=== PATIENT | female | born 1940 | race Caucasian/White ===

== ENCOUNTER 2018-02-01 07:51 | Day surgery (SDC) | payer MEDICARE ==
[~2018-02-01 07:51] MED LIST: BRIMONIDINE 0.2% OPHTH DROPS 5 ML ONE; BSS/LIDOCAINE/EPINEPHRINE 1 ML SYRINGE ONE; CYCLOPENTOLATE 1% OPHTH DROPS 2 ML ONE; EPINEPHrine 1 MG/ML AMP ONE; KETOROLAC 0.45% OPHTH DROPS ONE; PHENYLEPHRINE 2.5% OPHTH 2 ML DROPS ONE; PROPARACAINE 0.5% OPHTH DROPS 15 ML ONE; TIMOLOL 0.5% OPHTH DROPS ONE; TRIAMCIN/MOXIFLOX OPHTHALMIC 0.6 ML VIAL IO ONE; VANCOMYCIN OPHTHALMI 8MG/0.8ML 8 MG/0.8 ML SYRINGE IO ONE
[2018-02-01] MEDS ORDERED: LACTATED RINGERS 500 ML IV ONE (08:10)
[2018-02-01] MEDS ORDERED: PROPARACAINE 0.5% OPHTH DROPS 15 ML RIGHTEYE ONE ×2 (08:25→09:35)
[2018-02-01] MEDS ORDERED: CYCLOPENTOLATE 1% OPHTH DROPS 2 ML RIGHTEYE ONE (08:25)
[2018-02-01] MEDS ORDERED: KETOROLAC 0.45% OPHTH DROPS RIGHTEYE ONE (08:25)
[2018-02-01] MEDS ORDERED: PHENYLEPHRINE 2.5% OPHTH 2 ML DROPS RIGHTEYE ONE (08:25)
--- NOTE | 2018-02-01 09:10 | ANESTHESIA ---
Pre-Anesthesia VS, & Labs - Diagnosis Right eye senile combined cataract - Procedure Laser assisted cataract extraction with IOL right eye Vital Signs: Temp Pulse Resp BP Pulse Ox 36.7 C 73 16 145/65 H 100 02/01/18 08:17 02/01/18 08:17 02/01/18 08:17 02/01/18 08:17 02/01/18 08:17 Height 5 ft Weight (kg) 67 kg - NPO >8 hours - Is Patient ?: No Home Medications and Allergies Home Medications: Ambulatory Orders Estrogen,Con/M-Progest Acet [Prempro 0.3 mg-1.5 mg Tablet] 1 each PO DAILY 01/31/18 Lisinopril 20 mg PO DAILY 01/31/18 Multivitamin [Multivitamins] 1 each PO DAILY 01/31/18 hydroCHLOROthiazide [Hydrochlorothiazide] 25 mg PO DAILY 01/31/18 Estrogen,Con/M-Progest Acet [Prempro 0.3 mg-1.5 mg Tablet] 1 each PO DAILY 01/31/18 Lisinopril 20 mg PO DAILY 01/31/18 Multivitamin [Multivitamins] 1 each PO DAILY 01/31/18 hydroCHLOROthiazide [Hydrochlorothiazide] 25 mg PO DAILY 01/31/18 Allergies/Adverse Reactions: Allergies Allergy/AdvReac Type Severity Reaction Status Date / Time amoxicillin Allergy Rash Verified 02/01/18 08:21 azithromycin Allergy Unknown Verified 02/01/18 08:21 Anes History & Medical History - Anesthetic History Anesthesia Complications: reports: No previous complications - Medical History Cardiovascular: reports: Hypertension Pulmonary: reports: None Gastrointestinal: reports: Hiatal hernia Urinary: reports: None Neuro: reports: None Musculoskeletal: reports: None Endocrine/Autoimmune: reports: None Blood Disorders: reports: None Smoking Status: Never smoker Psychosocial: reports: Alcohol (Glass of wine every night) - Surgical History General: Other (colectomy and hernia repair) Exam General: Alert, Oriented x3, Cooperative, No acute distress Dental: WNL Mouth Openin Fingerbreadth Neck Mobility: Normal Mallampati classification: II Thyromental Distance: less than 4 cm Respiratory: Lungs clear, Normal breath sounds, No respiratory distress, No accessory muscle use Cardiovascular: Regular rate, Normal S1, Normal S2, No murmurs Mental/Cognitive Status: Alert/Oriented X3, Normal for patient Plan Anesthesia Type: MAC Consent for Procedure(s) Verified and Reviewed: Yes Code Status: Attempt Resuscitation ASA classification: 2-Mild systemic disease Is this case an emergency?: No
[2018-02-01] MEDS ORDERED: MIDAZOLAM 2 MG/2 ML VIAL IVP ONE (09:25)
[2018-02-01] MEDS ORDERED: EPINEPHrine 1 MG/ML AMP IVP ONE (09:34)
[2018-02-01] MEDS ORDERED: CHONDR SULF/HYALURONATE SYRINGE IO ONE (09:34)
[2018-02-01] MEDS ORDERED: BSS/LIDOCAINE/EPINEPHRINE 1 ML SYRINGE IO ONE ×2 (09:34)
[2018-02-01] MEDS ORDERED: BRIMONIDINE 0.2% OPHTH DROPS 5 ML OPTH ONE (09:34)
[2018-02-01] MEDS ORDERED: TIMOLOL 0.5% OPHTH DROPS OPTH ONE (09:34)
[2018-02-01 10:22] VITALS: BP 118/70
[2018-02-01] MEDS ORDERED: EPINEPHrine 1 MG/ML AMP ONE (12:00)
[2018-02-01] MEDS ORDERED: BRIMONIDINE 0.2% OPHTH DROPS 5 ML ONE (12:00)
[2018-02-01] MEDS ORDERED: BSS/LIDOCAINE/EPINEPHRINE 1 ML SYRINGE ONE (12:00)
[2018-02-01] MEDS ORDERED: VANCOMYCIN OPHTHALMI 8MG/0.8ML 8 MG/0.8 ML SYRINGE IO ONE (12:00)
[2018-02-01] MEDS ORDERED: TRIAMCIN/MOXIFLOX OPHTHALMIC 0.6 ML VIAL IO ONE (12:00)
[2018-02-01] MEDS ORDERED: TIMOLOL 0.5% OPHTH DROPS ONE (12:00)
--- NOTE | 2018-02-01 13:00 | OPERATIVE REPORT ---
DATE OF SERVICE: 02/01/2018 Physician: Zach Gibson MD PREOPERATIVE DIAGNOSIS: Visually significant cataract, right eye. This was her first cataract surgery. POSTOPERATIVE DIAGNOSIS: Visually significant cataract, right eye. This was her first cataract surgery. NAME OF PROCEDURE: Phacoemulsification with posterior chamber intraocular lens implant, right eye. SURGEON: Zach Gibson MD ANESTHESIA: Monitored anesthesia care. COMPLICATIONS: None. OPERATIVE INDICATIONS: This is a 77-year-old woman with progressive vision loss in the right eye due to 1-2+ nuclear sclerotic and trace posterior subcapsular cataract centrally. Indications for surgery were overall decrease in vision, difficulty reading; difficulty seeing street signs, difficulty driving in low light or at night and difficulty driving at night because of headlights from other vehicles and/or street lights. She was consented at length concerning risks and benefits of cataract surgery, after which she expressed a desire to proceed with surgery. OPERATIVE PROCEDURE: The patient was taken to OR #3 and placed under monitored anesthesia care. A surgical timeout was conducted confirming correct patient, correct procedure, and correct surgical site. She was placed under the LenSx laser and her eye docked to laser interface. The laser performed the capsulotomy, lens softening, phaco wounds, and ocular keratotomy incisions. She was then moved to the operating microscope, given topical anesthesia, and prepped and draped in usual sterile fashion. The eye was entered at the 12 and 9 o'clock positions. Intracameral Shugarcaine was injected into the anterior chamber, followed by Viscoat. Capsulorrhexis flap created by the LenSx laser was removed from the anterior chamber. The nucleus was hydrodissected and phacoemulsified. The cortex was evacuated using automated infusion and aspiration. Provisc was injected in the capsular bag and a 23.0 diopter intraocular lens was inserted into the bag. Approximately 0.8 mL of a mixture of triamcinolone, moxifloxacin and vancomycin was injected subconjunctivally in the superior quadrant for infection and inflammation prophylaxis. I and A was used to evacuate the viscoelastic materials. The eye was inflated to physiologic pressure using balanced salt solution and found to be not watertight so one 10-0 nylon suture was placed across the wound and it became watertight. The patient was taken from the operating room in good condition and given postoperative instructions. TD: 02/01/2018 10:08 MTDEli
== END 2018-02-01 07:52 | disposition home or self-care (01) ==
LOC: SDS 07:51
PROVIDERS: ATTEND Ophthalmology
PROC: 08RJ3JZ Replacement of Right Lens with Synthetic Substitute, Percutaneous Approach (ICD-10-PCS; principal; 2018-02-01 09:00)
DX: H25.811 Combined forms of age-related cataract, right eye (principal); H35.3130 Nonexudative age-related macular degeneration, bilateral, stage unspecified; I10 Essential (primary) hypertension; Z79.82 Long term (current) use of aspirin; Z79.899 Other long term (current) drug therapy
CPT/HCPCS: 66984; A9270; V2632

== ENCOUNTER 2018-12-10 20:47 | Outpatient (CLI) | payer MEDICARE | END 2018-12-10 20:48 | disposition critical access hospital (66) | LOC: EMS 20:47 | PROVIDERS: ATTEND Surgery | DX: R10.30 Lower abdominal pain, unspecified (principal); R11.0 Nausea | CPT/HCPCS: A0425; A0427 ==

== ENCOUNTER 2018-12-10 21:04 | Inpatient (IN) | payer MEDICARE ==
[2018-12-10] MEDS ORDERED: HYDROmorphone 1 MG/ML CARPUJECT IVP STA (21:22)
[2018-12-10] MEDS ORDERED: SODIUM CHLORIDE 0.9% 1,000 ML IV ONE ×2 (21:22→22:11)
--- NOTE | 2018-12-10 21:24 | ED Physician Documentation ---
PD HPI ABD PAIN - Stated complaint Stated Complaint: ABD PAIN/ NAUSEA - Chief complaint Chief Complaint: Abd Pain - History obtained from History obtained from: Patient, EMS - History of Present Illness Timing - onset: How many hours ago (6), Today Timing - duration: Hours (6) Timing - details: Gradual onset Pain level max: 8 Pain level now: 8 Quality: Cramping, Aching, Pain Location: All over / everywhere Radiation: No: Chest, , Lower back, Left flank, Left shoulder, Right flank, Right shoulder, Upper back Improved by: Other (nothing) Worsened by: Palpation Associated symptoms: Nausea, Vomiting ("dry heaves"). No: Fever, Hematemesis, Diarrhea, Constipation, Melena, Hematochezia, Dysuria Similar symptoms before: Has not had sx before Recently seen: Not recently seen - Additional information Additional information: has a large L sided hernia Review of Systems Ten Systems: 10 systems reviewed and negative Constitutional: denies: Fever, Chills Nose: denies: Rhinorrhea / runny nose, Congestion Cardiac: denies: Chest pain / pressure Respiratory: denies: Cough GI: reports: Nausea. denies: Diarrhea, Hematemesis, Bloody / black stool : denies: Dysuria, Frequency, Hesitancy Skin: denies: Rash Musculoskeletal: denies: Neck pain Neurologic: denies: Headache PD PAST MEDICAL HISTORY - Past Medical History Cardiovascular: Hypertension Respiratory: None Neuro: None Endocrine/Autoimmune: None GI: Hiatal hernia : None Musculoskeletal: None - Past Surgical History General: Other (colectomy and hernia repair) - Present Medications Home Medications: Ambulatory Orders Medication Instructions Recorded Confirmed Estrogen,Con/M-Progest Acet 1 each PO DAILY 01/31/18 02/01/18 [Prempro 0.3 mg-1.5 mg Tablet] Lisinopril 20 mg PO DAILY 01/31/18 02/01/18 Multivitamin [Multivitamins] 1 each PO DAILY 01/31/18 02/01/18 hydroCHLOROthiazide 25 mg PO DAILY 01/31/18 02/01/18 [Hydrochlorothiazide] - Allergies Allergies/Adverse Reactions: Allergies Allergy/AdvReac Type Severity Reaction Status Date / Time amoxicillin Allergy Rash Verified 12/10/18 21:09 azithromycin Allergy Unknown Verified 12/10/18 21:09 - Social History Smoking Status: Never smoker PD ED PE NORMAL - Vitals Vital signs reviewed: Yes - General General: Alert and oriented X 3, No acute distress, Well developed/nourished - HEENT HEENT: PERRL, Moist mucous membranes - Neck Neck: Supple, no meningeal sign - Cardiac Cardiac: RRR - Respiratory Respiratory: No respiratory distress, Clear bilaterally - Abdomen Abdomen: Soft, Other (Tender to palpation just left of midline. There is a firm mass at the site. Large left hernia) - Derm Derm: Warm and dry - Extremities Extremities: No deformity - Neuro Neuro: Alert and oriented X 3 - Psych Psych: Normal mood, Normal affect Results - Vitals Vitals: Vital Signs - 24 hr 12/10/18 12/10/18 21:09 21:19 Temperature 36.8 C Heart Rate 74 74 Respiratory 16 15 Rate Blood Pressure 158/56 H 158/56 H O2 Saturation 100 100 Oxygen O2 Source Room air - Labs Labs: Laboratory Tests 12/10/18 12/10/18 12/10/18 21:26 21:26 21:31 WBC 13.5 H RBC 4.18 L Hgb 13.2 Hct 39.3 MCV 94.0 MCH 31.6 H MCHC 33.6 RDW 13.5 Plt Count 227 MPV 10.7 Neut # (Auto) 10.4 H Lymph # (Auto) 2.0 Collin # (Auto) 0.7 Eos # (Auto) 0.2 Baso # (Auto) 0.1 Absolute Nucleated RBC 0.00 Nucleated RBC % 0.0 Sodium 140 Potassium 3.2 L Chloride 100 L Carbon Dioxide 24 Anion Gap 16.0 H BUN 26 H Creatinine 1.2 H Estimated GFR (MDRD) 44 L Glucose 111 H Lactic Acid 2.8 H Calcium 9.2 Total Bilirubin 0.9 AST 20 ALT 11 Alkaline Phosphatase 49 Total Protein 6.6 L Albumin 3.7 Globulin 2.9 Albumin/Globulin Ratio 1.3 Lipase 33 - Rads (name of study) CT abd/pelvis Radiology: Prelim report reviewed, EMP read contemporaneously, See rad report PD MEDICAL DECISION MAKING - ED course Complexity details: reviewed results, re-evaluated patient, considered differential, d/w patient, d/w family, d/w wellness consultant ED course: 78-year-old female presents to the emergency department with abdominal pain today. She has an exophytic multiloculated cystic and solid lesion in the lower pole left kidney, this will be followed up. Will need follow-up likely as an outpatient. Patient has a ventral abdominal hernia repair with mesh but has a large hernia protruding in the left lower quadrant. There is a long segment of bowel in the hernia sac with wall thickening and hyperenhancement consistent with nonspecific enteritis. She has not elevated lactate as well as leukocytosis. Will place on antibiotics and IV fluids. Discussed the case with Dr. Telles, general surgery on-call for possible incarcerated hernia based on a physical examination. CT does not appear to show an incarcerated hernia. Therefore was decided to place her in the hospital on antibiotics and IV fluids for serial exams and follow-up. Discussed the case with Dr. Jara, hospitalist who accepts. This document was made in part using voice recognition software. While efforts are made to proofread this document, sound alike and grammatical errors may occur. Departure - Departure Disposition: ED Place in Observation Clinical Impression: Enteritis, Lactic acid acidosis, Renal mass Condition: Stable Discharge Date/Time: 12/11/18 00:51
[2018-12-10 21:37] LABS: BASOPHILS # (AUTO) 0.1 10^3/uL (0.0-0.1); BASOPHILS % (AUTO) 0.4 %; EOSINOPHILS # (AUTO) 0.2 10^3/uL (0.0-0.7); EOSINOPHILS % (AUTO) 1.4 %; HGB - HEMOGLOBIN 13.2 g/dL (12.0-16.0); MEAN CORPUSCULAR HEMOGLOBIN 31.6 pg (27.0-31.0); MEAN CORPUSCULAR HGB CONC 33.6 g/dL (32.0-36.0); MEAN PLATELET VOLUME 10.7 fL (7.9-10.8); MONOCYTES # (AUTO) 0.7 10^3/uL (0.0-1.0); MONOCYTES % (AUTO) 5.3 %; NEUTROPHILS # (AUTO) 10.4 10^3/uL (1.5-6.6); NEUTROPHILS % (AUTO) 77.2 %; PLT - PLATELET COUNT 227 10^3/uL (130-450); RED BLOOD COUNT 4.18 10^6/uL (4.20-5.40); RED CELL DISTRIBUTION WIDTH 13.5 % (12.0-15.0); WHITE BLOOD COUNT 13.5 x10^3/uL (4.8-10.8)
[2018-12-10] MEDS ORDERED: IOVERSOL 320 100 ML VIAL IVP ONE ×2 (21:41→22:13)
[2018-12-10 21:51] LABS: ALBUMIN 3.7 g/dL (3.2-5.5); ALBUMIN/GLOBULIN RATIO 1.3 (1.0-2.2); BILIRUBIN,TOTAL 0.9 mg/dL (0.2-1.0); CALCIUM 9.2 mg/dL (8.5-10.3); CREATININE 1.2 mg/dL (0.4-1.0); TOTAL PROTEIN 6.6 g/dL (6.7-8.2)
[2018-12-10] MEDS ORDERED: CEFEPIME 2 GM in SODIUM CHLORIDE 0.9% MINIBAG 100 ML IV STA (22:21)
--- NOTE | 2018-12-10 23:00 | CT Report ---
Reason: abd pain Procedure Date: 12/10/2018 Accession Number: [id number] / [id number] Procedure: CT - Abdomen/Pelvis W CPT Code: FULL RESULT: EXAM: CT ABDOMEN AND PELVIS EXAM DATE: 12/10/2018 10:04 PM. CLINICAL HISTORY: Lower abdominal pain started suddenly 6 hours ago. History of colon surgery in 2008. COMPARISONS: ABDOMEN/PELVIS W/ 02/21/2015 12:11 PM. TECHNIQUE: Routine helical CT imaging was performed through the abdomen and pelvis. IV contrast: 100 cc Optiray 320. Enteric contrast: No. Reconstructions: Coronal and sagittal. In accordance with CT protocol optimization, one or more of the following dose reduction techniques were utilized for this exam: automated exposure control, adjustment of mA and/or KV based on patient size, or use of iterative reconstructive technique. FINDINGS: Imaged chest: Heart is normal in size with mitral annular calcifications. Mild atherosclerosis of the imaged thoracic aorta. Liver: Unremarkable. Gallbladder: See. Biliary: Unremarkable. Pancreas: Unremarkable. Spleen: Unremarkable. Adrenal glands: Unremarkable. Kidneys: Exophytic multiloculated cystic and solid lesion emanating from the lower pole of the left kidney measuring 3.6 x 2.8 x 2.8 cm. The right kidney demonstrates a few scattered tiny subcentimeter low-density foci, technically too small to accurately characterize and indeterminant. Urinary bladder: Unremarkable. Reproductive organs: Unremarkable. Bowel: Again status post attempted ventral abdominal hernia repair with mesh with persistent large ventral abdominal hernia extending into the lower left pelvic subcutaneous tissues. The hernia sac is incompletely imaged on this study but measures approximately 25 x 9 cm with fascial defect measuring 8 cm. There is a long segment of small bowel within the hernia sac that demonstrates wall thickening and hyperenhancement consistent with nonspecific enteritis. The remaining bowel from the hernia sac is unremarkable. There is only minimal fluid surrounding the inflamed small bowel not dilated bowel to suggest obstruction Status post sigmoidectomy with colorectal anastomosis. Uncomplicated descending colonic diverticulosis. Stomach: Nonspecific gastric distention. Appendix: The appendix is not reliably identified, however, there are no secondary signs of acute appendicitis. Miscellaneous: No free fluid. No extraluminal gas. Aorta: Moderate aortic atherosclerosis. Normal in caliber. Lymph nodes: No pathologically enlarged lymph nodes identified. Bones: Grade 1 anterolisthesis L4 on L5 and L5 on S1. No suspicious osseous lesions. IMPRESSION: 1. Exophytic multiloculated cystic and solid lesion emanating from the lower pole of the left kidney measuring 3.6 x 2.8 x 2.8 cm. This should be considered renal cell carcinoma until proven otherwise. Recommend renal mass protocol MRI abdomen for further evaluation. 2. Again status post attempted ventral abdominal hernia repair with mesh with persistent large ventral abdominal hernia extending into the lower left pelvic subcutaneous tissues. The hernia sac is incompletely imaged on this study but measures approximately 25 x 9 cm with fascial defect measuring 8 cm. There is a long segment of small bowel within the hernia sac that demonstrates wall thickening and hyperenhancement consistent with nonspecific enteritis, which may be infectious, inflammatory or ischemic. No evidence of bowel obstruction. 3. Status post sigmoidectomy with colorectal anastomosis. 4. Uncomplicated descending colonic diverticulosis. RADIA
[2018-12-10] MEDS ORDERED: ACETAMINOPHEN 325 MG TABLET PO PRN (23:19)
[2018-12-10] MEDS ORDERED: ONDANSETRON 4 MG/2 ML VIAL IVP PRN (23:19)
[2018-12-10] MEDS ORDERED: POTASSIUM CHLORIDE INJ 40 MEQ in SODIUM CHLORIDE 0.9% 480 ML IV ONE (23:24)
[2018-12-10] MEDS ORDERED: metroNIDAZOLE 500 MG/100 ML 500 MG/100 ML BAG IV SCH (23:45)
--- NOTE | 2018-12-10 23:48 | CONSULTATION NOTE ---
Referring Provider Name of Referring Provider:: Dr. Fazal Herring Consult Date: 12/10/18 Chief Complaint - Chief Complaint Chief Complaint: Abdominal pain and exceedingly large recurrent incisional hernia History of Present Illness - Admitted From Admitted From:: [facility] Emergency Department Room 6 - History Obtained From Records Reviewed: Yes History obtained from: Patient and chart Exam Limitations: None - History of Present Illness HPI Comment/Other: Dr. Fazal Herring called me on consultation to evaluate and possibly treat this very pleasant 78-year-old female for abdominal pain in the face of a very large abdominal recurrent incisional hernia. The patient is known to me as I have seen in the office for the incisional hernia in the past. The patient had her hernia repaired in the past robotically but it soon recurred. We had adopted a wait and see policy regarding this hernia and as it was very large and it was unclear whether or not she could tolerate having this repaired. Today she had a rather abrupt onset of abdominal pain in the midline and it was described as sharp. She has not had any significant nausea or vomiting. Bowel habits have been normal. History - Past Medical History Cardiovascular: reports: Hypertension Respiratory: reports: None Neuro: reports: None Endocrine/Autoimmune: reports: None GI: reports: Hiatal hernia : reports: None Musculoskeletal: reports: None MRSA Hx?: No - Past Surgical History General: reports: Other (colectomy and hernia repair) Meds/Allgy - Home Medications Home Medications: Ambulatory Orders Medication Instructions Recorded Confirmed Estrogen,Con/M-Progest Acet 1 each PO DAILY 01/31/18 02/01/18 [Prempro 0.3 mg-1.5 mg Tablet] Lisinopril 20 mg PO DAILY 01/31/18 02/01/18 Multivitamin [Multivitamins] 1 each PO DAILY 01/31/18 02/01/18 hydroCHLOROthiazide 25 mg PO DAILY 01/31/18 02/01/18 [Hydrochlorothiazide] - Allergies Allergies/Adverse Reactions: Allergies Allergy/AdvReac Type Severity Reaction Status Date / Time amoxicillin Allergy Rash Verified 12/10/18 21:09 azithromycin Allergy Unknown Verified 12/10/18 21:09 Exam - Vital Signs Reviewed Vital Signs: Yes Vital Signs: Vital Signs x48h Temp Pulse Resp BP Pulse Ox 12/10/18 21:19 74 15 158/56 H 100 12/10/18 21:09 36.8 C 74 16 158/56 H 100 - Physical Exam General Appearance: positive: No acute distress Eyes Bilateral: positive: No lid inflammation, Conjunctivae nml, No scleral icterus ENT: positive: Dry mucous membranes Neck: positive: Trachea midline Respiratory: positive: Chest non-tender, No respiratory distress, Breath sounds nml Cardiovascular: positive: Regular rate & rhythm Abdomen: positive: Nml bowel sounds, Tenderness (Minimal midline at the incisional hernia, I was able to reduce the hernia quite nicely but its large size precludes ensuring that the hernia was completely reduced) Skin: positive: Color nml Extremities: positive: Non-tender, Nml appearance Neurologic/Psychiatric: positive: Oriented x3, Motor nml, Sensation nml, Mood/affect nml Conclusion/Plan - Diagnosis Diagnosis: The radiologic read as enteritis and there is no evidence of bowel obstruction. - Plan Plan: The patient will be admitted, treated with IV fluids as well as antibiotics and followed with serial examinations as well as IV antibiotics. Her white count is elevated and her lactate is mildly elevated as well. We currently do not have the biologic mesh that is required to close this hernia defect if in fact the bowel is compromised. If she worsens over the next 24 to 48 hours and surgery is indicated we would either have to get the biologic mesh here for transfer her to a hospital that has it. In studies the risk of placement of mesh in an infected situation results and removal of the mesh and 50 to 90% of all cases. An additional finding on her CT scan of her abdomen is that of a left kidney lesion which is concerning for malignancy. This does need to be worked up. This will not be worked up acutely as her hernia and bowel issue takes prec edence. 45 minutes of [id number] time spent with the patient, the majority of which was spent in discussion, coordination of care, and completion of the requisite paperwork Dragon disclaimer: This document was created in part using voice recognition technology. Because of the inherent limitations of the system ([employer] user manual states that the licensee understands that speech recognition is a statistical process and that recognition errors are inherent in the process), occasional same sounding word substitutions and grammatical errors do occur and persist despite proofreading. Please read this document for context. - Lab Results Fish Bones: 12/10/18 21:26 12/10/18 21:26 - Diagnostic Imaging Results Diagnostic Imaging Results: positive: Final report reviewed, Read independently
--- NOTE | 2018-12-10 23:48 | HISTORY & PHYSICAL EXAMINATION ---
Chief Complaint - Chief Complaint Chief Complaint: Abdominal pain History of Present Illness - Admitted From Admitted From:: Home - History Obtained From Records Reviewed: Yes History obtained from: Patient - History of Present Illness HPI Comment/Other: This is a 78 year old female with a past medical history significant for hypertension, ventral hernia, and diverticulitis s/p colectomy who presents from home today after she developed abdominal cramping and pain. She reports feeling well until 3pm when the cramping developed. It then went away on it's own. She had dinner and felt well but then the pain returned and it was quite severe. She rated at 10/10 and located over her hernia. It was non-radiating and she reports no alleviating factors. The pain was relieved with IV dilaudid. She reports that she had an episode of dry heaving but that she did not vomiting anything up. She reports a prior history of this ventral hernia and that it was repaired in the past robotically but unfortunately it was not successful. She denies diarrhea at this time and reports passing gas. Denies fevers, chills, chest pain, and dyspnea. She does report weight loss over the last two years but she can't quantify how much and attributes it to poor oral intake. She is a nonsmoker. In the ER, she was afebrile, hypertensive, and not tachycardic. Labs were significant for leukocytosis with a left shift, elevated BUN/creatinine, and elevated lactic. She underwent a CT of the abdomen/Pelvis which was concerning for a long segment of small bowel within the hernia that showed wall thickening and hyperenhancement concerning for nonspecific enteritis. There was also an incidental finding of a renal mass. She was evaluated by General Surgery and admission was recommended for clinical monitoring as she may require intervention if there is no improvement. Of note, I did speak with the patient regarding code status. She would like to be a full code at this time. History - Past Medical History Cardiovascular: reports: Hypertension Respiratory: reports: None Neuro: reports: None Endocrine/Autoimmune: reports: None GI: reports: Hiatal hernia, Diverticulitis (s/p colectomy) : reports: None Musculoskeletal: reports: None MRSA Hx?: No - Past Surgical History General: reports: Other (Colectomy and ventral hernia repair) - Family & Social History Family History Comment/Other: She reports one sister had lung cancer and that she was a nonsmoker. Her father from a [place]. Living arrangement: At home Living Situation: With spouse/s.o. Social History Notes: She lives on [address] with her . They are both retired. She is a nonsmoker. She does drink a glass of wine daily. - Substance History Use: Uses substance without health or social issues: NONE - POLST Patient has POLST: No Meds/Allgy - Home Medications Home Medications: Ambulatory Orders Medication Instructions Recorded Confirmed Estrogen,Con/M-Progest Acet 1 each PO DAILY 01/31/18 02/01/18 [Prempro 0.3 mg-1.5 mg Tablet] Lisinopril 20 mg PO DAILY 01/31/18 02/01/18 Multivitamin [Multivitamins] 1 each PO DAILY 01/31/18 02/01/18 hydroCHLOROthiazide 25 mg PO DAILY 01/31/18 02/01/18 [Hydrochlorothiazide] - Allergies Allergies/Adverse Reactions: Allergies Allergy/AdvReac Type Severity Reaction Status Date / Time amoxicillin Allergy Rash Verified 12/10/18 21:09 azithromycin Allergy Unknown Verified 12/10/18 21:09 Review of Systems - Constitutional Constitutional: reports: Weight loss. denies: Fatigue, Fever, Chills, Weakness, Poor appetite, Diaphoresis - Cardiovascular Cariovascular: denies: Chest pain, Exertional dyspnea, Decr. exercise tolerance - Respiratory Respiratory: denies: SOB at rest, SOB with exertion - Gastrointestinal Gastrointestinal: reports: Abdominal pain, Abdominal distention, Nausea, Vomiting (Dry heaving). denies: Constipation, Diarrhea - Genitourinary Genitourinary: denies: Dysuria, Frequency, Urgency, Hematuria - Musculoskeletal Musculoskeletal: denies: Muscle pain - Integumentary Integumentary: denies: Rash - Neurological Neurological: denies: General weakness, Focal weakness - Hematologic/Lymphatic Hematologic/Lymphatic: denies: Bleeding tendencies - All Other Systems All Other Systems: reports: Reviewed and negative Prior Level of Functionality: Independent with ADL's. Exam - Vital Signs Reviewed Vital Signs: Yes Vital Signs: Vital Signs x48h Temp Pulse Resp BP Pulse Ox 12/10/18 21:19 74 15 158/56 H 100 12/10/18 21:09 36.8 C 74 16 158/56 H 100 - Physical Exam General Appearance: positive: No acute distress, Alert Eyes Bilateral: positive: Normal inspection ENT: positive: ENT inspection nml, Dry mucous membranes Neck: positive: Nml inspection Respiratory: positive: No respiratory distress. negative: Wheezes, Rales, Rhonchi Cardiovascular: positive: Regular rate & rhythm, No murmur. negative: Tachycardia, Bradycardia, Systolic murmur, Diastolic murmur Abdomen: positive: Tenderness (Over the central portion of the ventral hernia), Abnml bowel sounds (Hypoactive), Other (Large ventral hernia noted.). negative: Guarding, Rebound Skin: positive: Color nml, No rash, Warm, Dry Extremities: positive: Full ROM, Pedal edema (Nonpitting edema in the left lower extremity, chronic.) Neurologic/Psychiatric: positive: Oriented x3, Motor nml, Mood/affect nml. negative: Disoriented to person, Disoriented to place, Disoriented to time, Weakness Sepsis Event Note (H) - Evaluation Current Stage of Sepsis: Sepsis Possible source of Sepsis: positive: GI tract/intra-abdominal - Sepsis Criteria Sepsis Criteria: WBC count greater than 12,000 or less than 4000, Metabolic: lactate > 2 mmol/L Conclusion/Plan - Problem List (1) Sepsis Conclusion/Plan: She meets sepsis criteria given her leukocytosis with left shift and lactic acidosis. Suspect this is secondary to the enteritis. Urinalysis is pending. - Will start empiric Ceftriaxone and Flagyl given the concern for abdominal source - Check blood cultures - Follow up urinalysis - Trend white count (2) Enteritis Conclusion/Plan: This likely the etiology of her abdominal pain and emesis. CT of the abdomen concerning for enteritis that may be infectious or ischemic. No evidence of obstruction. She does have a known ventral hernia. Lactic is elevated. - Empiric antibiotics - Morphine IV PRN - Zofran PRN - IV hydration - Trend lactic - Discussed case with General Surgery who recommend antibiotics and monitoring her clinically. If no improvement, will consider intervention if biomesh is available otherwise she will require transfer. (3) Lactic acid acidosis Conclusion/Plan: Lactic is elevated at 2.8. This may be secondary to sepsis or ischemia due to the enteritis. - IV hydration - Trend lactic every 4 hours (4) Renal insufficiency Conclusion/Plan: Unclear if this is chronic or possibly acute secondary to dehydration. Creatinine elevated at 1.2 and BUn at 16. - IV hydration - Hold HCTZ and Lisinopril - Monitor renal function (5) Renal mass Conclusion/Plan: Incidental finding on CT of the abdomen/pelvis. Concerning for RCC. She reports weight loss over last few years but is unable to quantify how much. She is a non-smoker. - Check urinalysis - Will require outpatient MRI with renal mass protocol (6) Hypertension Conclusion/Plan: She is hypertensive at this time. Will hold home Lisinopril as she may have JUAN. Will hold HCTZ as she appears hypovolemic. - Lab Results Lab results reviewed: Yes Fish Bones: 12/10/18 21:26 12/10/18 21:26 - Diagnostic Imaging Results Diagnostic Imaging Results: positive: Final report reviewed
[2018-12-11 00:15] LABS: MAGNESIUM 1.7 mg/dL (1.7-2.8); PHOSPHORUS 2.8 mg/dL (2.5-4.6)
[2018-12-11] MEDS ORDERED: HYDROmorphone 1 MG/ML CARPUJECT IVP STA (00:30)
[2018-12-11] MEDS: LACTATED RINGERS 1,000 ML IV SCH ×2 (01:31→17:25)
[2018-12-11] MEDS: POTASSIUM CHLOR 10 MEQ/100 ML 10 MEQ/100 ML BAG IV SCH ×3 (01:31→05:27)
[2018-12-11] MEDS: SODIUM CHLORIDE FLUSH 0.9% 10 ML SYRINGE IVP SCH ×3 (01:32→17:25)
[2018-12-11] MEDS: SODIUM CHLORIDE FLUSH 0.9% 10 ML SYRINGE IVP PRN ×3 (03:26→06:42)
[2018-12-11] MEDS: MORPHINE 2 MG/ML CARPUJECT IVP PRN ×2 (03:27→05:36)
[2018-12-11 05:49] LABS: BASOPHILS # (AUTO) 0.1 10^3/uL (0.0-0.1); BASOPHILS % (AUTO) 0.4 %; EOSINOPHILS % (AUTO) 0.1 %; HGB - HEMOGLOBIN 12.5 g/dL (12.0-16.0); LYMPHOCYTES # (AUTO) 1.2 10^3/uL (1.5-3.5); LYMPHOCYTES % (AUTO) 9.8 %; MEAN CORPUSCULAR HEMOGLOBIN 32.3 pg (27.0-31.0); MEAN CORPUSCULAR HGB CONC 33.9 g/dL (32.0-36.0); MEAN CORPUSCULAR VOLUME 95.3 fL (81.0-99.0); MEAN PLATELET VOLUME 10.8 fL (7.9-10.8); MONOCYTES # (AUTO) 0.3 10^3/uL (0.0-1.0); MONOCYTES % (AUTO) 2.8 %; NEUTROPHILS # (AUTO) 10.4 10^3/uL (1.5-6.6); NEUTROPHILS % (AUTO) 86.5 %; PLT - PLATELET COUNT 204 10^3/uL (130-450); RED BLOOD COUNT 3.87 10^6/uL (4.20-5.40); RED CELL DISTRIBUTION WIDTH 13.6 % (12.0-15.0)
[2018-12-11 06:04] LABS: CALCIUM 8.8 mg/dL (8.5-10.3); CREATININE 1.2 mg/dL (0.4-1.0); MAGNESIUM 1.8 mg/dL (1.7-2.8); PHOSPHORUS 3.4 mg/dL (2.5-4.6)
[2018-12-11] MEDS: PANTOPRAZOLE 40 MG VIAL IVP SCH (06:42)
[2018-12-11] MEDS ORDERED: LACTATED RINGERS 1,000 ML IV ONE (07:05)
--- NOTE | 2018-12-11 10:40 | PROVIDER PROGRESS NOTE ---
Subjective - General Admit Date: 12/10/18 - Review of Systems General: positive: No symptoms HEENT: positive: No symptoms Pulmonary: positive: No symptoms Cardiovascular: positive: No symptoms Gastrointestinal: positive: No symptoms (Patient states that she has no abdominal pain this morning.) Genitourinary: positive: No symptoms Musculoskeletal: positive: No symptoms Skin: positive: No symptoms All Other Systems: positive: Reviewed and negative Objective - Patient Data Reviewed Vital Signs: Yes Vital Signs: Vital Signs x48h Temp Pulse Resp BP Pulse Ox 12/11/18 08:46 36.8 C 76 16 137/52 H 100 12/11/18 04:00 36.6 C 77 16 145/56 H 98 Weight: Weight 12/09/18 12/10/18 12/11/18 23:59 23:59 23:59 Weight (kg) 64.41 kg 71 kg Intake & Output: Intake and Output Totals x24h 12/09/18 12/10/18 12/11/18 23:59 23:59 23:59 Intake Total 100 3681.667 Output Total 100 Balance 100 3581.667 - Lab Results Lab Results: 12/12/18 05:00 12/12/18 05:00 Other Lab Results: Lab Results x24hrs 12/11/18 12/11/18 12/11/18 Range/Units 05:40 05:40 05:40 WBC 12.0 H (4.8-10.8) x10^3/uL RBC 3.87 L (4.20-5.40) 10^6/uL Hgb 12.5 (12.0-16.0) g/dL Hct 36.9 L (37.0-47.0) % MCV 95.3 (81.0-99.0) fL MCH 32.3 H (27.0-31.0) pg MCHC 33.9 (32.0-36.0) g/dL RDW 13.6 (12.0-15.0) % Plt Count 204 (130-450) 10^3/uL MPV 10.8 (7.9-10.8) fL Neut # (Auto) 10.4 H (1.5-6.6) 10^3/uL Lymph # (Auto) 1.2 L (1.5-3.5) 10^3/uL [place] # (Auto) 0.3 (0.0-1.0) 10^3/uL Eos # (Auto) 0.0 (0.0-0.7) 10^3/uL Baso # (Auto) 0.1 (0.0-0.1) 10^3/uL Absolute Nucleated RBC 0.00 x10^3/uL Nucleated RBC % 0.0 /100WBC Sodium 138 (135-145) mmol/L Potassium 4.6 (3.5-5.0) mmol/L Chloride 105 (101-111) mmol/L Carbon Dioxide 22 (21-32) mmol/L Anion Gap 11.0 (6-13) BUN 26 H (6-20) mg/dL Creatinine 1.2 H (0.4-1.0) mg/dL Estimated GFR (MDRD) 44 L (>89) Glucose 148 H (70-100) mg/dL Lactic Acid 2.8 H (0.5-2.2) mmol/L Calcium 8.8 (8.5-10.3) mg/dL Phosphorus 3.4 (2.5-4.6) mg/dL Magnesium 1.8 (1.7-2.8) mg/dL Total Bilirubin (0.2-1.0) mg/dL AST (10-42) IU/L ALT (10-60) IU/L Alkaline Phosphatase (42-121) IU/L Total Protein (6.7-8.2) g/dL Albumin (3.2-5.5) g/dL Globulin (2.1-4.2) g/dL Albumin/Globulin Ratio (1.0-2.2) Lipase (22-51) U/L 12/10/18 12/10/18 12/10/18 Range/Units 23:58 23:58 21:31 WBC (4.8-10.8) x10^3/uL RBC (4.20-5.40) 10^6/uL Hgb (12.0-16.0) g/dL Hct (37.0-47.0) % MCV (81.0-99.0) fL MCH (27.0-31.0) pg MCHC (32.0-36.0) g/dL RDW (12.0-15.0) % Plt Count (130-450) 10^3/uL MPV (7.9-10.8) fL Neut # (Auto) (1.5-6.6) 10^3/uL Lymph # (Auto) (1.5-3.5) 10^3/uL [place] # (Auto) (0.0-1.0) 10^3/uL Eos # (Auto) (0.0-0.7) 10^3/uL Baso # (Auto) (0.0-0.1) 10^3/uL Absolute Nucleated RBC x10^3/uL Nucleated RBC % /100WBC Sodium (135-145) mmol/L Potassium (3.5-5.0) mmol/L Chloride (101-111) mmol/L Carbon Dioxide (21-32) mmol/L Anion Gap (6-13) BUN (6-20) mg/dL Creatinine (0.4-1.0) mg/dL Estimated GFR (MDRD) (>89) Glucose (70-100) mg/dL Lactic Acid 2.5 H 2.8 H (0.5-2.2) mmol/L Calcium (8.5-10.3) mg/dL Phosphorus 2.8 (2.5-4.6) mg/dL Magnesium 1.7 (1.7-2.8) mg/dL Total Bilirubin (0.2-1.0) mg/dL AST (10-42) IU/L ALT (10-60) IU/L Alkaline Phosphatase (42-121) IU/L Total Protein (6.7-8.2) g/dL Albumin (3.2-5.5) g/dL Globulin (2.1-4.2) g/dL Albumin/Globulin Ratio (1.0-2.2) Lipase (22-51) U/L 12/10/18 12/10/18 Range/Units 21:26 21:26 WBC 13.5 H (4.8-10.8) x10^3/uL RBC 4.18 L (4.20-5.40) 10^6/uL Hgb 13.2 (12.0-16.0) g/dL Hct 39.3 (37.0-47.0) % MCV 94.0 (81.0-99.0) fL MCH 31.6 H (27.0-31.0) pg MCHC 33.6 (32.0-36.0) g/dL RDW 13.5 (12.0-15.0) % Plt Count 227 (130-450) 10^3/uL MPV 10.7 (7.9-10.8) fL Neut # (Auto) 10.4 H (1.5-6.6) 10^3/uL Lymph # (Auto) 2.0 (1.5-3.5) 10^3/uL [place] # (Auto) 0.7 (0.0-1.0) 10^3/uL Eos # (Auto) 0.2 (0.0-0.7) 10^3/uL Baso # (Auto) 0.1 (0.0-0.1) 10^3/uL Absolute Nucleated RBC 0.00 x10^3/uL Nucleated RBC % 0.0 /100WBC Sodium 140 (135-145) mmol/L Potassium 3.2 L (3.5-5.0) mmol/L Chloride 100 L (101-111) mmol/L Carbon Dioxide 24 (21-32) mmol/L Anion Gap 16.0 H (6-13) BUN 26 H (6-20) mg/dL Creatinine 1.2 H (0.4-1.0) mg/dL Estimated GFR (MDRD) 44 L (>89) Glucose 111 H (70-100) mg/dL Lactic Acid (0.5-2.2) mmol/L Calcium 9.2 (8.5-10.3) mg/dL Phosphorus (2.5-4.6) mg/dL Magnesium (1.7-2.8) mg/dL Total Bilirubin 0.9 (0.2-1.0) mg/dL AST 20 (10-42) IU/L ALT 11 (10-60) IU/L Alkaline Phosphatase 49 (42-121) IU/L Total Protein 6.6 L (6.7-8.2) g/dL Albumin 3.7 (3.2-5.5) g/dL Globulin 2.9 (2.1-4.2) g/dL Albumin/Globulin Ratio 1.3 (1.0-2.2) Lipase 33 (22-51) U/L - Current Medications Current Medications: Current Medications Generic Name Dose Route Start Last Admin Trade Name Freq PRN Reason Stop Dose Admin Acetaminophen 650 mg 12/10/18 23:19 12/11/18 02:15 Tylenol PO 650 mg Q4HR PRN Administration Pain 1 to 4 Lactated Ringer's 1,000 mls @ 100 mls/hr 12/10/18 23:45 12/11/18 05:27 Lr IV 100 mls/hr .Q10H SAMIR Infusion Morphine Sulfate 2 mg 12/10/18 23:19 12/11/18 05:36 Morphine (Carpuject) IVP 2 mg Q2HR PRN Administration Pain 8 to 10 Ondansetron HCl 4 mg 12/10/18 23:19 12/11/18 02:15 Zofran Inj IVP 4 mg Q6HR PRN Administration Nausea / Vomiting Pantoprazole Sodium 40 mg 12/11/18 07:00 12/11/18 06:42 Protonix IVP 40 mg QDAC SAMIR Administration Sodium Chloride 10 ml 12/10/18 23:19 12/11/18 06:42 Normal Saline Flush 0.9% IVP 10 ml PRN PRN Administration NEEDED PER PROVIDER ORDERS Sodium Chloride 10 ml 12/11/18 01:00 12/11/18 02:19 Normal Saline Flush 0.9% IVP 10 ml 0100,0900,1700 SAMIR Administration - Physical Exam General Appearance: positive: No acute distress Eyes Bilateral: positive: No lid inflammation, Conjunctivae nml, No scleral icterus ENT: positive: Dry mucous membranes Neck: positive: Trachea midline Respiratory: positive: Chest non-tender, No respiratory distress, Breath sounds nml Cardiovascular: positive: Regular rate & rhythm Abdomen: positive: Non-tender, Nml bowel sounds, Other (Hernia is subjectively softer today.) Skin: positive: Color nml Extremities: positive: Non-tender, Nml appearance Neurologic/Psychiatric: positive: Oriented x3, Motor nml, Sensation nml, Mood/affect nml Impression/Plan - Problem List Problem List: Hospital day #1 1) FEN Continue IVF at rate. 2) Bowel Clinically better although WBC and lactate still elevated. 3) Hernia The patient is clearly better in the sense that should her pain has disappeared. Unfortunately with her WBCs and lactate still elevated, this is a source of concern. The mesh required to fix her hernia if there is compromised bowel present is not available at this hospital at this time. The hospital does not have biologic mesh. Phone calls have been made through the surgical department to obtain this mesh and that should be available tomorrow. I have also spoken with the veterans contact representative. The optimal treatment for this patient would be for her bowel symptoms to resolve and for her to have a semi-elective herniorrhaphy with mesh but not with biologic mesh. Biologic mesh is meant to dissolve and this will eventually leave the patient with a recurrent hernia. Considering the fact that this patient has an extraordinarily large hernia and it already has recurred, biologic mesh could only be considered a stopgap pedro sure. All of this was discussed with the patient who is in agreement with the plan. I will check on her tomorrow and if her pain is still nonexistent and her white count improves she should be sent home with a plan to follow-up in my office to schedule surgery. Joseph disclaimer: This document was created in part using voice recognition technology. Because of the inherent limitations of the system ([employer]'s [employer] user manual states that the licensee understands that speech recognition is a statistical process and that recognition errors are inherent in the process), occasional sa me sounding word substitutions and grammatical errors do occur and persist despite proofreading. Please read this document for context.
[2018-12-11] MEDS: cefTRIAXone 2 GM in SODIUM CHLORIDE 0.9% MINIBAG 100 ML IV SCH (10:47)
[2018-12-11 11:57] LABS: BILIRUBIN,URINE NEGATIVE (NEGATIVE); GLUCOSE, URINE (UA) NEGATIVE (NEGATIVE); KETONES,URINE (UA) NEGATIVE (NEGATIVE); LEUKOCYTE ESTERASE, URINE NEGATIVE (NEGATIVE); NITRITE,URINE NEGATIVE (NEGATIVE); OCCULT BLOOD,URINE TRACE-LYSE (NEGATIVE); PH,URINE 6.5 PH (5.0-7.5); PROTEIN,URINE NEGATIVE (NEGATIVE); UROBILINOGEN,URINE 0.2 (NORMAL) E.U./dL (NORMAL)
[2018-12-11 11:59] LABS: CLARITY,URINE CLEAR (CLEAR)
[2018-12-11] MEDS: metroNIDAZOLE 500 MG/100 ML 500 MG/100 ML BAG IV SCH ×2 (14:04→22:01)
--- NOTE | 2018-12-11 18:01 | PROVIDER PROGRESS NOTE ---
Subjective - Prog Note Date Prog Note Date: 12/11/18 Prog Note Time: 18:01 - Subjective Pt reports feeling: Improved Subjective: Rula explains, "coming to the hospital was not on my list of things to do today". She denies chest pain, nausea, vomiting, dizziness, dysuria, a new rash, a productive cough, or confusion. She admits to her abdominal pain being resolved, and + flatus, although no BMs. She wonders if eating almonds may have triggered this event. Current Medications - Current Medications Current Medications: Active Medications: Acetaminophen (Tylenol) 650 mg PO Q4HR PRN PRN Reason: Pain 1 to 4 Last Admin: 12/11/18 02:15 Dose: 650 mg Lactated Ringer's (Lr) 1,000 mls @ 100 mls/hr IV .Q10H [facility] Last Admin: 12/11/18 17:25 Dose: 100 mls/hr Ceftriaxone Sodium 2 gm/ (Sodium Chloride) 100 mls @ 200 mls/hr IV DAILY [facility] Last Infusion: 12/11/18 11:14 Dose: Infused Metronidazole (Flagyl 500 Mg/100 Ml) 500 mg in 100 mls @ 100 mls/hr IV TID [facility] Last Infusion: 12/11/18 14:57 Dose: Infused Morphine Sulfate (Morphine (Carpuject)) 2 mg IVP Q2HR PRN PRN Reason: Pain 8 to 10 Last Admin: 12/11/18 05:36 Dose: 2 mg Ondansetron HCl (Zofran Inj) 4 mg IVP Q6HR PRN PRN Reason: Nausea / Vomiting Last Admin: 12/11/18 02:15 Dose: 4 mg Pantoprazole Sodium (Protonix) 40 mg IVP QDAC [facility] Last Admin: 12/11/18 06:42 Dose: 40 mg Sodium Chloride (Normal Saline Flush 0.9%) 10 ml IVP PRN PRN PRN Reason: NEEDED PER PROVIDER ORDERS Last Admin: 12/11/18 06:42 Dose: 10 ml Sodium Chloride (Normal Saline Flush 0.9%) 10 ml IVP 0100,0900,1700 [facility] Last Admin: 12/11/18 17:25 Dose: 10 ml HOME meds: Lisinopril 10 mg PO DAILY 01/31/18 Multivitamin [Multivitamins] 1 each PO DAILY 01/31/18 hydroCHLOROthiazide [Hydrochlorothiazide] 12.5 mg PO DAILY 01/31/18 Aspirin 325 mg PO DAILY 12/11/18 C,E,Zinc,Copper 11/Suvor5p/Lut [Ocuvite Adult 50 Plus Softgel] 1 each PO DAILY 12/11/18 Estrogen,Con/M-Progest Acet [Prempro 0.45-1.5 mg Tablet] 1 each PO DAILY 12/11/18 Objective - Vital Signs/Intake & Output Reviewed Vital Signs: Yes Vital Signs: Vital Signs x48h Temp Pulse Resp BP BP Pulse Ox 12/11/18 15:59 36.8 C 71 20 148/55 H 95 12/11/18 12:26 36.7 C 73 16 137/70 H 100 Intake & Output: Intake & Output 12/08/18 12/09/18 12/10/18 12/11/18 23:59 23:59 23:59 23:59 Intake Total 100 4600.000 Output Total 400 Balance 100 4200.000 - Objective General Appearance: positive: No acute distress, Alert Eyes Bilateral: positive: PERRL ENT: positive: Pharynx nml, No signs of dehydration Neck: positive: Thyroid nml, No JVD, Trachea midline Respiratory: positive: Chest non-tender, No respiratory distress, Breath sounds nml Cardiovascular: positive: Regular rate & rhythm, No gallop Peripheral Pulses: 1+ Radial (R), 1+ Radial (L) Abdomen: positive: Non-tender, Nml bowel sounds, Mass (+ ventral hernia), Abnml bowel sounds (hyperactive in bilateral upper quadrants) Back: positive: Nml inspection Skin: positive: Color nml, No rash, Warm, Dry Extremities: positive: Non-tender, Full ROM, Nml appearance, No pedal edema Neurologic/Psychiatric: positive: Oriented x3, CN's nml (2-12), Motor nml, Sensation nml, Mood/affect nml Reflexes: Bicep (R): 3+, Bicep (L): 3+ - Lab Results Fish Bones: 12/11/18 05:40 12/11/18 05:40 Other Labs: Lab Results x24hrs 12/11/18 12/11/18 12/11/18 Range/Units 11:48 10:45 05:40 WBC (4.8-10.8) x10^3/uL RBC (4.20-5.40) 10^6/uL Hgb (12.0-16.0) g/dL Hct (37.0-47.0) % MCV (81.0-99.0) fL MCH (27.0-31.0) pg MCHC (32.0-36.0) g/dL RDW (12.0-15.0) % Plt Count (130-450) 10^3/uL MPV (7.9-10.8) fL Neut # (Auto) (1.5-6.6) 10^3/uL Lymph # (Auto) (1.5-3.5) 10^3/uL Dare # (Auto) (0.0-1.0) 10^3/uL Eos # (Auto) (0.0-0.7) 10^3/uL Baso # (Auto) (0.0-0.1) 10^3/uL Absolute Nucleated RBC x10^3/uL Nucleated RBC % /100WBC Sodium (135-145) mmol/L Potassium (3.5-5.0) mmol/L Chloride (101-111) mmol/L Carbon Dioxide (21-32) mmol/L Anion Gap (6-13) BUN (6-20) mg/dL Creatinine (0.4-1.0) mg/dL Estimated GFR (MDRD) (>89) Glucose (70-100) mg/dL Lactic Acid 2.5 H 2.8 H (0.5-2.2) mmol/L Calcium (8.5-10.3) mg/dL Phosphorus (2.5-4.6) mg/dL Magnesium (1.7-2.8) mg/dL Total Bilirubin (0.2-1.0) mg/dL AST (10-42) IU/L ALT (10-60) IU/L Alkaline Phosphatase (42-121) IU/L Total Protein (6.7-8.2) g/dL Albumin (3.2-5.5) g/dL Globulin (2.1-4.2) g/dL Albumin/Globulin Ratio (1.0-2.2) Lipase (22-51) U/L Urine Color YELLOW Urine Clarity CLEAR (CLEAR) Urine pH 6.5 (5.0-7.5) PH Ur Specific [place] <=1.005 (1.002-1.030) Urine Protein NEGATIVE (NEGATIVE) mg/dL Urine Glucose (UA) NEGATIVE (NEGATIVE) mg/dL Urine Ketones NEGATIVE (NEGATIVE) mg/dL Urine Occult Blood TRACE-LYSE (NEGATIVE) Urine Nitrite NEGATIVE (NEGATIVE) Urine Bilirubin NEGATIVE (NEGATIVE) Urine Urobilinogen 0.2 (NORMAL) (NORMAL) E.U./dL Ur Leukocyte Esterase NEGATIVE (NEGATIVE) Ur Microscopic Review NOT INDICATED Urine Culture Comments NOT INDICATED 12/11/18 12/11/18 12/10/18 Range/Units 05:40 05:40 23:58 WBC 12.0 H (4.8-10.8) x10^3/uL RBC 3.87 L (4.20-5.40) 10^6/uL Hgb 12.5 (12.0-16.0) g/dL Hct 36.9 L (37.0-47.0) % MCV 95.3 (81.0-99.0) fL MCH 32.3 H (27.0-31.0) pg MCHC 33.9 (32.0-36.0) g/dL RDW 13.6 (12.0-15.0) % Plt Count 204 (130-450) 10^3/uL MPV 10.8 (7.9-10.8) fL Neut # (Auto) 10.4 H (1.5-6.6) 10^3/uL Lymph # (Auto) 1.2 L (1.5-3.5) 10^3/uL Dare # (Auto) 0.3 (0.0-1.0) 10^3/uL Eos # (Auto) 0.0 (0.0-0.7) 10^3/uL Baso # (Auto) 0.1 (0.0-0.1) 10^3/uL Absolute Nucleated RBC 0.00 x10^3/uL Nucleated RBC % 0.0 /100WBC Sodium 138 (135-145) mmol/L Potassium 4.6 (3.5-5.0) mmol/L Chloride 105 (101-111) mmol/L Carbon Dioxide 22 (21-32) mmol/L Anion Gap 11.0 (6-13) BUN 26 H (6-20) mg/dL Creatinine 1.2 H (0.4-1.0) mg/dL Estimated GFR (MDRD) 44 L (>89) Glucose 148 H (70-100) mg/dL Lactic Acid (0.5-2.2) mmol/L Calcium 8.8 (8.5-10.3) mg/dL Phosphorus 3.4 2.8 (2.5-4.6) mg/dL Magnesium 1.8 1.7 (1.7-2.8) mg/dL Total Bilirubin (0.2-1.0) mg/dL AST (10-42) IU/L ALT (10-60) IU/L Alkaline Phosphatase (42-121) IU/L Total Protein (6.7-8.2) g/dL Albumin (3.2-5.5) g/dL Globulin (2.1-4.2) g/dL Albumin/Globulin Ratio (1.0-2.2) Lipase (22-51) U/L Urine Color Urine Clarity (CLEAR) Urine pH (5.0-7.5) PH Ur Specific [place] (1.002-1.030) Urine Protein (NEGATIVE) mg/dL Urine Glucose (UA) (NEGATIVE) mg/dL Urine Ketones (NEGATIVE) mg/dL Urine Occult Blood (NEGATIVE) Urine Nitrite (NEGATIVE) Urine Bilirubin (NEGATIVE) Urine Urobilinogen (NORMAL) E.U./dL Ur Leukocyte Esterase (NEGATIVE) Ur Microscopic Review Urine Culture Comments 12/10/18 12/10/18 12/10/18 Range/Units 23:58 21:31 21:26 WBC (4.8-10.8) x10^3/uL RBC (4.20-5.40) 10^6/uL Hgb (12.0-16.0) g/dL Hct (37.0-47.0) % MCV (81.0-99.0) fL MCH (27.0-31.0) pg MCHC (32.0-36.0) g/dL RDW (12.0-15.0) % Plt Count (130-450) 10^3/uL MPV (7.9-10.8) fL Neut # (Auto) (1.5-6.6) 10^3/uL Lymph # (Auto) (1.5-3.5) 10^3/uL Dare # (Auto) (0.0-1.0) 10^3/uL Eos # (Auto) (0.0-0.7) 10^3/uL Baso # (Auto) (0.0-0.1) 10^3/uL Absolute Nucleated RBC x10^3/uL Nucleated RBC % /100WBC Sodium 140 (135-145) mmol/L Potassium 3.2 L (3.5-5.0) mmol/L Chloride 100 L (101-111) mmol/L Carbon Dioxide 24 (21-32) mmol/L Anion Gap 16.0 H (6-13) BUN 26 H (6-20) mg/dL Creatinine 1.2 H (0.4-1.0) mg/dL Estimated GFR (MDRD) 44 L (>89) Glucose 111 H (70-100) mg/dL Lactic Acid 2.5 H 2.8 H (0.5-2.2) mmol/L Calcium 9.2 (8.5-10.3) mg/dL Phosphorus (2.5-4.6) mg/dL Magnesium (1.7-2.8) mg/dL Total Bilirubin 0.9 (0.2-1.0) mg/dL AST 20 (10-42) IU/L ALT 11 (10-60) IU/L Alkaline Phosphatase 49 (42-121) IU/L Total Protein 6.6 L (6.7-8.2) g/dL Albumin 3.7 (3.2-5.5) g/dL Globulin 2.9 (2.1-4.2) g/dL Albumin/Globulin Ratio 1.3 (1.0-2.2) Lipase 33 (22-51) U/L Urine Color Urine Clarity (CLEAR) Urine pH (5.0-7.5) PH Ur Specific [place] (1.002-1.030) Urine Protein (NEGATIVE) mg/dL Urine Glucose (UA) (NEGATIVE) mg/dL Urine Ketones (NEGATIVE) mg/dL Urine Occult Blood (NEGATIVE) Urine Nitrite (NEGATIVE) Urine Bilirubin (NEGATIVE) Urine Urobilinogen (NORMAL) E.U./dL Ur Leukocyte Esterase (NEGATIVE) Ur Microscopic Review Urine Culture Comments 12/10/18 Range/Units 21:26 WBC 13.5 H (4.8-10.8) x10^3/uL RBC 4.18 L (4.20-5.40) 10^6/uL Hgb 13.2 (12.0-16.0) g/dL Hct 39.3 (37.0-47.0) % MCV 94.0 (81.0-99.0) fL MCH 31.6 H (27.0-31.0) pg MCHC 33.6 (32.0-36.0) g/dL RDW 13.5 (12.0-15.0) % Plt Count 227 (130-450) 10^3/uL MPV 10.7 (7.9-10.8) fL Neut # (Auto) 10.4 H (1.5-6.6) 10^3/uL Lymph # (Auto) 2.0 (1.5-3.5) 10^3/uL Dare # (Auto) 0.7 (0.0-1.0) 10^3/uL Eos # (Auto) 0.2 (0.0-0.7) 10^3/uL Baso # (Auto) 0.1 (0.0-0.1) 10^3/uL Absolute Nucleated RBC 0.00 x10^3/uL Nucleated RBC % 0.0 /100WBC Sodium (135-145) mmol/L Potassium (3.5-5.0) mmol/L Chloride (101-111) mmol/L Carbon Dioxide (21-32) mmol/L Anion Gap (6-13) BUN (6-20) mg/dL Creatinine (0.4-1.0) mg/dL Estimated GFR (MDRD) (>89) Glucose (70-100) mg/dL Lactic Acid (0.5-2.2) mmol/L Calcium (8.5-10.3) mg/dL Phosphorus (2.5-4.6) mg/dL Magnesium (1.7-2.8) mg/dL Total Bilirubin (0.2-1.0) mg/dL AST (10-42) IU/L ALT (10-60) IU/L Alkaline Phosphatase (42-121) IU/L Total Protein (6.7-8.2) g/dL Albumin (3.2-5.5) g/dL Globulin (2.1-4.2) g/dL Albumin/Globulin Ratio (1.0-2.2) Lipase (22-51) U/L Urine Color Urine Clarity (CLEAR) Urine pH (5.0-7.5) PH Ur Specific [place] (1.002-1.030) Urine Protein (NEGATIVE) mg/dL Urine Glucose (UA) (NEGATIVE) mg/dL Urine Ketones (NEGATIVE) mg/dL Urine Occult Blood (NEGATIVE) Urine Nitrite (NEGATIVE) Urine Bilirubin (NEGATIVE) Urine Urobilinogen (NORMAL) E.U./dL Ur Leukocyte Esterase (NEGATIVE) Ur Microscopic Review Urine Culture Comments ABX Reporting Has patient been on IV antibiotics over the past 48 hours?: Yes Sepsis Event Note (H) - Evaluation Current Stage of Sepsis: Resolved (resolving tonight) Possible source of Sepsis: positive: GI tract/intra-abdominal - Sepsis Criteria Sepsis Criteria: WBC count greater than 12,000 or less than 4000, Metabolic: lactate > 2 mmol/L Assessment/Plan - Problem List (1) Sepsis Impression: Sepsis - Sepsis criteria has been met; due to leukocytosis with left shift, lactic acidosis with her last lactic acid being elevated at 2.5, nearly the same as admission value of 2.8 - Elevated WBC count of 13.5 - Suspect this is secondary to the enteritis - Urinalysis was negative - Continues on empiric Ceftriaxone and Flagyl given the concern for abdominal source - Blood cultures x2 have shown no growth Plan: Continue to monitor, monitor vital signs, mental status, and overall condition Enteritis -Most likely etiology of her abdominal pain and emesis on presentation - CT of the abdomen concerning for enteritis which may be infectious or ischemic -No evidence of obstruction, although there is a known ventral hernia -Lactic is elevated at 2.5 - Empiric antibiotics continue - General surgery is following Plan: Morphine IV PRN, Zofran PRN, IV hydration, trend labs, and monitor overall condition Lactic acid acidosis -Lactic was elevated at 2.8, which has only improved to 2.5 today - May be secondary to sepsis or ischemia due to the enteritis -Continues on IV hydration Plan: Continue to monitor Renal insufficiency - Unclear if this is chronic or possibly acute secondary to dehydration -Creatinine elevated at 1.2 and BUN at 16, both unchanged today Plan: Continue IV hydration, hold HCTZ and Lisinopril, monitor renal function Renal mass - Incidental finding on CT of the abdomen/pelvis -Concerning for RCC -Patient admits to weight loss over last few years but not recently - No smoking history, negative UA Plan: Will require outpatient MRI with renal mass protocol upon discharge Hypertension -Blood pressures have been ok; 137/70, heart rates 70s, no hypotension today Plan: Continue to hold home Lisinopril and HCTZ, resume after acute illness Incisional hernia -Patient has a known large abdominal recurrent incisional hernia - The patient is known to the general surgery team, for this very reason - Patient complained of abrupt onset of abdominal pain in the midline and it was described as sharp, no nausea or vomiting and normal bowel pattern -Status post hernia repair in the past robotically but it soon recurred - General surgery, Dr. Velarde has been consulted and recommends; a wait and see policy regarding this hernia due to the size and complexity - Mesh has been delivered in the event that surgical intervention is required Plan: Continue to watch overnight, treat acute illness, treat symptoms, offer a meal, and NPO after 0200 for potential surgery in the AM
[2018-12-12] MEDS: LACTATED RINGERS 1,000 ML IV SCH (04:06)
[2018-12-12 05:29] LABS: BASOPHILS # (AUTO) 0.1 10^3/uL (0.0-0.1); BASOPHILS % (AUTO) 0.6 %; EOSINOPHILS # (AUTO) 0.5 10^3/uL (0.0-0.7); EOSINOPHILS % (AUTO) 5.8 %; HGB - HEMOGLOBIN 10.4 g/dL (12.0-16.0); LYMPHOCYTES # (AUTO) 2.7 10^3/uL (1.5-3.5); LYMPHOCYTES % (AUTO) 34.5 %; MEAN CORPUSCULAR HEMOGLOBIN 31.6 pg (27.0-31.0); MEAN CORPUSCULAR HGB CONC 32.1 g/dL (32.0-36.0); MEAN CORPUSCULAR VOLUME 98.5 fL (81.0-99.0); MEAN PLATELET VOLUME 11.1 fL (7.9-10.8); MONOCYTES # (AUTO) 0.6 10^3/uL (0.0-1.0); MONOCYTES % (AUTO) 7.1 %; NEUTROPHILS # (AUTO) 4.1 10^3/uL (1.5-6.6); NEUTROPHILS % (AUTO) 51.5 %; PLT - PLATELET COUNT 170 10^3/uL (130-450); RED BLOOD COUNT 3.29 10^6/uL (4.20-5.40); WHITE BLOOD COUNT 7.9 x10^3/uL (4.8-10.8)
[2018-12-12] MEDS: metroNIDAZOLE 500 MG/100 ML 500 MG/100 ML BAG IV SCH (05:29)
[2018-12-12 05:40] LABS: CALCIUM 8.5 mg/dL (8.5-10.3); CREATININE 1.3 mg/dL (0.4-1.0); MAGNESIUM 1.8 mg/dL (1.7-2.8); PHOSPHORUS 3.2 mg/dL (2.5-4.6)
[2018-12-12] MEDS: PANTOPRAZOLE 40 MG VIAL IVP SCH (06:52)
[2018-12-12] MEDS: SODIUM CHLORIDE FLUSH 0.9% 10 ML SYRINGE IVP SCH ×2 (06:53→10:08)
[2018-12-12 08:08] VITALS: BP 134/51
[2018-12-12] MEDS: cefTRIAXone 2 GM in SODIUM CHLORIDE 0.9% MINIBAG 100 ML IV SCH (08:39)
--- NOTE | 2018-12-12 10:18 | Discharge Plan ---
Discharge Plan Problem Reviewed?: Yes Disposition: Home, Self Care Condition: Good Prescriptions: Ciprofloxacin HCl [Cipro] 500 mg PO Q12H #14 tablet Metronidazole [Flagyl] 500 mg PO Q8H 7 Days #21 tablet Wheat Dextrin [Benefiber] 1 each PO DAILY #30 packet Diet: Soft Activity Restrictions: Activity as Tolerated Shower Restrictions: No Health Concerns: Ventral hernia Infection Abdominal pain Plan of Treatment: Continue the oral antibiotics for the next 7 days at home See general surgery as planned Plan for an upcoming surgery to repair your hernia Care Goals: Prevent recurrence of this event Prevent hospital stays Prevent abdominal pain or infections Assessment: Your condition improved since getting IV antibiotics and you became medically stable so surgery was not needed You should take benefiber each day to prevent bowel material from becoming trapped Follow a diverticulosis diet at home We found a left kidney mass that needs further investigation at a later date See your PCP within one week and general surgery as planned Additional Instructions or Follow Up instructions: Continue your medications at home as prescribed. Return if you worsen. No Smoking: If you smoke, Please STOP! Call for help. Follow-up with: Francesca May MD [Primary Care Provider] -
--- NOTE | 2018-12-12 10:24 | DISCHARGE SUMMARY ---
"Discharge Summary Admit Date: 12/10/18 Discharge Date: 12/12/18 Discharging Provider: WARREN Amaro Primary Care Provider: Francesca May Code Status: Attempt Resuscitation Condition at Discharge: Good Discharge Disposition: 01 Home, Self Care - DIAGNOSES Admission Diagnoses: Sepsis Enteritis Lactic acid acidosis Renal insufficiency Renal mass Hypertension Discharge Diagnoses with Status of Each Condition: Sepsis- resolved, continue PO antibiotics at home Enteritis- improved Lactic acid acidosis- resolved Renal insufficiency- improved Renal mass- Patient is aware, stable Hypertension- chronic,stable Incisional hernia- chronic, stable, pain is resolved Diverticulosis of colon- chronic, stable, benefiber sent to the pharmacy - HPI History of Present Illness: HPI per Dr. Jara: This is a 78 year old female with a past medical history significant for hypertension, ventral hernia, and diverticulitis s/p colectomy who presents from home today after she developed abdominal cramping and pain. She reports feeling well until 3pm when the cramping developed. It then went away on it's own. She had dinner and felt well but then the pain returned and it was quite severe. She rated at 10/10 and located over her hernia. It was non- radiating and she reports no alleviating factors. The pain was relieved with IV dilaudid. She reports that she had an episode of dry heaving but that she did not vomiting anything up. She reports a prior history of this ventral hernia and that it was repaired in the past robotically but unfortunately it was not successful. She denies diarrhea at this time and reports passing gas. Denies fevers, chills, chest pain, and dyspnea. She does report weight loss over the last two years but she can't quantify how much and attributes it to poor oral in take. She is a nonsmoker. In the ER, she was afebrile, hypertensive, and not tachycardic. Labs were significant for leukocytosis with a left shift, elevated BUN/creatinine, and elevated lactic. She underwent a CT of the abdomen/Pelvis which was concerning for a long segment of small bowel within the hernia that showed wall thickening and hyperenhancement concerning for nonspecific enteritis. There was also an incidental finding of a renal mass. She was evaluated by General Surgery and admission was recommended for clinical monitoring as she may require intervention if there is no improvement. Of note, I did speak with the patient regarding code status. She would like to be a full code at this time. - CONSULTS | PROCEDURES Consultations: General surgery- Dr. Velarde - HOSPITAL COURSE Hospital Course: The the patient was first thought to have a possible ischemic bowel with sepsis, but quickly improved with bowel rest, IV antibiotics, IVFs. She did not require emergent surgery, and will follow up outpatient. She was given diet and teaching materials on diverticulosis to prevent recurrence and put on 7 more days of PO antibiotics. She is to follow up with her PCP within one week. - ALLERGIES Allergies/Adverse Reactions: Allergies Allergy/AdvReac Type Severity Reaction Status Date / Time amoxicillin Allergy Rash Verified 12/10/18 21:09 azithromycin Allergy Unknown Verified 12/10/18 21:09 - MEDICATIONS Home Medications: Ambulatory Orders Medication Instructions Recorded Confirmed Lisinopril 10 mg PO DAILY 01/31/18 12/11/18 Multivitamin [Multivitamins] 1 each PO DAILY 01/31/18 12/11/18 hydroCHLOROthiazide 12.5 mg PO DAILY 01/31/18 12/11/18 [Hydrochlorothiazide] Aspirin 325 mg PO DAILY 12/11/18 12/11/18 C,E,Zinc,Copper 11/Sjeov2h/Lut 1 each PO DAILY 12/11/18 12/11/18 [Ocuvite Adult 50 Plus Softgel] Estrogen,Con/M-Progest Acet 1 each PO DAILY 12/11/18 12/11/18 [Prempro 0.45-1.5 mg Tablet] Ciprofloxacin HCl [Cipro] 500 mg PO Q12H #14 tablet 12/12/18 Metronidazole [Flagyl] 500 mg PO Q8H 7 Days #21 tablet 12/12/18 Wheat Dextrin [Benefiber] 1 each PO DAILY #30 packet 12/12/18 - PHYSICAL EXAM AT DISCHARGE General Appearance: positive: No acute distress, Alert Eyes Bilateral: positive: Normal inspection, PERRL ENT: positive: ENT inspection nml, Pharynx nml Neck: positive: Nml inspection, Thyroid nml, No JVD Respiratory: positive: Chest non-tender, No respiratory distress, Breath sounds nml Cardiovascular: positive: Regular rate & rhythm, No gallop, Systolic murmur Peripheral Pulses: positive: 1+ Abdomen: positive: Tenderness, Hepatomegaly, Mass (profound ventral hernia), Abnml bowel sounds Back: positive: Nml inspection Skin: positive: Color nml, No rash, Warm, Dry Extremities: positive: Non-tender, Full ROM, Nml appearance, No pedal edema Neurologic/Psychiatric: positive: Oriented x3, CN's nml (2-12), Motor nml, Sensation nml, Mood/affect nml Reflexes: Bicep (R): 3+, Bicep (L): 3+ - LABS Result Diagrams: 12/12/18 05:00 12/12/18 05:00 - DIAGNOSTIC IMAGING Diagnostic Imaging Results: Final report reviewed Diagnostic Imaging Results Comments: EXAM: CT ABDOMEN AND PELVIS 12/10/2018 10:04 PM: IMPRESSION: 1. Exophytic multiloculated cystic and solid lesion emanating from the lower pole of the left kidney measuring 3.6 x 2.8 x 2.8 cm. This should be considered renal cell carcinoma until proven otherwise. Recommend renal mass protocol MRI abdomen for further evaluation. 2. Again status post attempted ventral abdominal hernia repair with mesh with persistent large ventral abdominal hernia extending into the lower left pelvic subcutaneous tissues. The hernia sac is incompletely imaged on this study but measures approximately 25 x 9 cm with fascial defect measuring 8 cm. There is a long segment of small bowel within the hernia sac that demonstrates wall thickening and hyperenhancement consistent with nonspecific enteritis, which may be infectious, inflammatory or ischemic. No evidence of bowel obstruction. 3. Status post sigmoidectomy with colorectal anastomosis. 4. Uncomplicated descending colonic diverticulosis. - SEPSIS Current Stage of Sepsis: Resolved (resolving tonight) - FOLLOW UP Follow Up: Disposition: Home Prescriptions: Ciprofloxacin HCl [Cipro] 500 mg PO Q12H #14 tablet Metronidazole [Flagyl] 500 mg PO Q8H 7 Days #21 tablet Wheat Dextrin [Benefiber] 1 each PO DAILY #30 packet Health Concerns: Ventral hernia, Infection, Abdominal pain Plan of Treatment: Continue the oral antibiotics for the next 7 days at home See general surgery as planned Plan for an upcoming surgery to repair your hernia Care Goals: Prevent recurrence of this event Prevent hospital stays Prevent abdominal pain or infections Assessment: Your condition improved since getting IV antibiotics and you became medically stable so surgery was not needed You should take benefiber each day to prevent bowel material from becoming trapped Follow a diverticulosis diet at home We found a left kidney mass that needs further investigation at a later date See your PCP within one week and general surgery as planned Additional Instructions or Follow Up instructions: Continue your medications at home as prescribed. Return if you worsen. - TIME SPENT Time Spent in Discharge (Minutes): 55"
== END 2018-12-12 11:11 | disposition home or self-care (01) | DRG 872 ==
LOC: EDUNIT# → ED 21:04 → MS2 23:19 → UNDODISIN 12-12 11:11
PROVIDERS: ADMIT Internal Medicine; ATTEND Nurse Practitioner
DX: A41.9 Sepsis, unspecified organism (principal); E87.2 Acidosis; N28.9 Disorder of kidney and ureter, unspecified; K52.9 Noninfective gastroenteritis and colitis, unspecified; N28.89 Other specified disorders of kidney and ureter; K43.2 Incisional hernia without obstruction or gangrene; K57.30 Diverticulosis of large intestine without perforation or abscess without bleeding; E86.0 Dehydration; I10 Essential (primary) hypertension; Z90.49 Acquired absence of other specified parts of digestive tract; Z79.899 Other long term (current) drug therapy; Z79.82 Long term (current) use of aspirin; Z80.1 Family history of malignant neoplasm of trachea, bronchus and lung
CPT/HCPCS: 36415; 74177; 80048; 80053; 81003; 83605; 83690; 83735; 84100; 85025; 87040; 96365; 96375; 99284; 99285; A9270; J1170; J7120; Q9967; 81001; 87086

== ENCOUNTER 2019-02-21 10:45 | Outpatient (CLI) | payer MEDICARE ==
--- NOTE | 2019-02-22 09:08 | XRAY Report ---
Reason: L SHOULDER PAIN Procedure Date: 02/21/2019 Accession Number: [id number] / [id number] Procedure: XR - Shoulder 3 View LT CPT Code: Final Report FULL RESULT: EXAM: LEFT SHOULDER RADIOGRAPHY EXAM DATE: 02/21/2019 10:53 AM. CLINICAL HISTORY: L SHOULDER PAIN. COMPARISON: None. TECHNIQUE: 3 views. FINDINGS: Bones: Normal. No fracture or bone lesion. Joints: Calcific densities are noted in the rotator cuff. Mild acromioclavicular joint narrowing, osteophytosis, and subchondral sclerosis. Moderate glenohumeral joint narrowing, osteophytosis, and subchondral sclerosis. Mild inferior and mild posterior displacement of the left humerus head with respect to the glenoid. Soft tissues: The visualized hemithorax is unremarkable. No soft tissue swelling. IMPRESSION: 1. No acute fracture. 2. Possible mild inferior and posterior subluxation of the left glenoid humeral joint. Confirmation can be performed with MRI as necessary. 3. 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 4. Probable calcific rotator cuff tendinopathy. RADIA
== END 2019-02-21 10:46 | disposition home or self-care (01) ==
LOC: DI 10:45
PROVIDERS: ATTEND Internal Medicine
DX: M19.012 Primary osteoarthritis, left shoulder (principal)

== ENCOUNTER 2019-03-22 11:08 | Outpatient (CLI) | payer MEDICARE ==
--- NOTE | 2019-03-27 11:57 | Mammography Report ---
Reason: ROUTINE MAMMO Procedure Date: 03/22/2019 Accession Number: [id number] / [id number] Procedure: NGA - Screening Mammo w/Lalo CPT Code: Final Report FULL RESULT: EXAM: Screening Mammo w/Lalo DATE: 03/22/2019 11:38 AM CLINICAL HISTORY: The patient is an asymptomatic 78-year-old female. No reported personal nor family history of breast cancer. Prior breast reduction. TECHNIQUE: (B) - Bilateral CC and MLO views were obtained. COMPARISON: 07/01/2015, 06/17/2014, 01/26/2013, 09/26/2011 and 08/24/2010 PARENCHYMAL PATTERN: (A) - The breasts demonstrate scattered fibroglandular densities bilaterally. FINDINGS: The pattern of asymmetry secondary to prior reduction mammoplasty is unchanged. Few benign calcifications present. There are no suspicious masses, calcifications, or areas of distortion. IMPRESSION: Benign findings. BI-RADS category 2. RECOMMENDATION: (ANNUAL) - Recommend routine annual screening mammography. BI-RADS CATEGORY: (2) - Benign Findings. STANDARD QUALIFYING STATEMENTS: A negative or benign imaging report should not preclude biopsy if clinically suspicious findings are present. Dense breasts may obscure an underlying neoplasm. This examination was reviewed with the aid of 3D breast imaging (tomosynthesis).
== END 2019-03-22 11:09 | disposition home or self-care (01) ==
LOC: DI 11:08
PROVIDERS: ATTEND Internal Medicine
DX: Z12.31 Encounter for screening mammogram for malignant neoplasm of breast (principal)
CPT/HCPCS: 77063; 77067

== ENCOUNTER 2019-03-30 11:49 | Outpatient (CLI) | payer MEDICARE ==
[2019-03-30 12:12] LABS: CREATININE 1.2 mg/dL (0.4-1.0)
[2019-03-30] MEDS ORDERED: IOVERSOL 320 100 ML VIAL IVP ONE ×2 (12:28→12:52)
--- NOTE | 2019-03-30 13:26 | CT Report ---
Reason: RENAL LESION Procedure Date: 03/30/2019 Accession Number: [id number] / [id number] Procedure: CT - ABDOMEN W/WO CPT Code: Final Report FULL RESULT: EXAM: CT ABDOMEN WITHOUT AND WITH CONTRAST EXAM DATE: 03/30/2019 12:51 PM. HISTORY: Further evaluation of left lower pole renal lesion. COMPARISON: ABDOMEN/PELVIS W/ 12/10/2018 10:04 PM. TECHNIQUE: Routine renal mass protocol helical CT imaging was performed through the abdomen before and after administration of IV contrast: Without and with 90 cc Optiray 320. Enteric contrast: No. Reconstruction: Coronal and sagittal. In accordance with CT protocol optimization, one or more of the following dose reduction techniques were utilized for this exam: automated exposure control, adjustment of mA and/or KV based on patient size, or use of iterative reconstructive technique. FINDINGS: Lung Bases: Unremarkable. Liver: Normal. No masses. Gallbladder/Bile Ducts: Unremarkable. Spleen: Normal. Pancreas: Normal. No masses or ductal obstruction. Adrenal Glands: Normal. Right kidney: No solid masses, calculi or hydronephrosis evident. The ureter is within normal limits. A tiny cyst of the anterior right mid kidney noted as before. Left kidney: The complex exophytic mass of the lower pole is again identified measuring 2.6 x 2.9 x 2.1 cm compared to 3.2 x 3.3 x 2.2 cm previously. A lateral cystic component appears decreased since last exam. The lesion demonstrates an avidly enhancing rim and internal septations as well as some eccentric inferior solid components. The average internal density increases from 17 HU precontrast to 31 HU in the portal venous phase. No calculi or hydronephrosis evident. The left ureter is unremarkable. Peritoneal Cavity/Bowel: A large anterior wall midline to left anterior abdominal wall hernia is again identified in the infraumbilical location. The hernia sac is only partially visualized on the study but measures at least 25 cm transversely by 7.7 cm AP similar to prior exam. It contains loops of nonobstructed small bowel as before. The hernia extends through a defect in or adjacent to an apparent hernia repair mesh. No bowel obstruction evident. The visualized colon is unremarkable. No free fluid or adenopathy evident. Vasculature: No aneurysms or other significant abnormality. Bones: Grade 1 anterolisthesis L4-L5 secondary to severe degenerative facet disease at this level as well as at L5-S1. Other: None. IMPRESSION: 1. Complex exophytic 2.9 cm left lower pole renal cystic lesion demonstrating rim enhancement and enhancing septations and should be considered malignancy such as renal cell carcinoma unless proven otherwise. The lesion has slightly decreased in size from 3.3 cm previously secondary to a possibly ruptured lateral cystic component. 2. No evidence for metastatic disease or adenopathy. 3. Large anterior left to midline infraumbilical abdominal wall hernia containing nonobstructed loops of small bowel similar to last exam measuring up to 25 cm. 4. Grade 1 anterolisthesis L4-L5 secondary to severe degenerative facet disease. RADIA
== END 2019-03-30 11:50 | disposition home or self-care (01) ==
LOC: DI 11:49
PROVIDERS: ATTEND Urology
DX: N28.9 Disorder of kidney and ureter, unspecified (principal); K43.9 Ventral hernia without obstruction or gangrene; M47.816 Spondylosis without myelopathy or radiculopathy, lumbar region; M43.16 Spondylolisthesis, lumbar region
CPT/HCPCS: 36415; 74170; 82565; 84520; Q9967

== ENCOUNTER 2019-09-12 10:55 | Outpatient (CLI) | payer MEDICARE ==
[2019-09-12 11:20] LABS: CREATININE 1.3 mg/dL (0.4-1.0)
[2019-09-12] MEDS ORDERED: IOVERSOL 320 100 ML VIAL IVP ONE ×2 (11:26→13:21)
--- NOTE | 2019-09-12 16:50 | CT Report ---
PROCEDURE: ABDOMEN W/WO INDICATIONS: RENAL LESION LEFT CONTRAST: IV CONTRAST: Optiray 320 ml: 140 PO CONTRAST: *NO PO CONTRAST TECHNIQUE: After the administration of intravenous contrast, 5 mm thick sections acquired from the diaphragm to the symphysis. 5 mm coronal and sagittal reformats were acquired. For radiation dose reduction, the following was used: automated exposure control, adjustment of mA and/or kV according to patient sieitan ferguson. COMPARISON: CT examination dated 03.30.19 FINDINGS: Image quality: Excellent. Lung bases: Lung bases are clear. Heart size is normal. Genitourinary: The right kidney is within normal limits, without hydronephrosis, nor abnormal enhanc ement. Right proximal ureter is within normal limits. As before, there is a partially cystic and part ially solid exophytic mass protruding inferiorly from the inferior pole left kidney, which currently measures roughly 30 mm, as before. As before, this mass demonstrates enhancing internal septations as well as mural enhancement, especially inferiorly. Solid organs: Liver and spleen are normal in size and enhancement. Gallbladder Biliary system is non dilated. Pancreas enhances normally. No adrenal nodules. Peritoneum and bowel: Unenhanced bowel loops are normal in caliber and wall thickness. No free flui d or air. Nodes and vessels: No retroperitoneal or mesenteric adenopathy by size criteria. Aorta and inferior vena cava are normal in caliber. Bones: No suspicious bony lesions. No vertebral body compression fractures. Miscellaneous: Mesh repair of the anterior abdominal wall has been performed, as before. There is an incompletely visualized left anterior pelvic wall hernia at the inferolateral aspect of the mesh, whi ch is incompletely visualized, and contains multiple small bowel loops, measuring at least 17 cm diam eter. No evidence of associated bowel strangulation, nor obstruction. IMPRESSION: 1. No change in left inferior pole renal cell carcinoma. 2. No evidence of regional metastatic disease. 3. Incompletely visualized bowel containing left anterior abdominal wall hernia without evidence of a ssociated bowel strangulation, nor obstruction as visualized. Reviewed by: Neel Potter MD on 09/12/2019 4:48 PM PDT Approved by: Neel Potter MD on 09/12/2019 4:48 PM PDT Station ID: [id number]
== END 2019-09-12 10:56 | disposition home or self-care (01) ==
LOC: LAB 10:55 → DI 10:56
PROVIDERS: ATTEND Urology
DX: C64.2 Malignant neoplasm of left kidney, except renal pelvis (principal); K43.9 Ventral hernia without obstruction or gangrene; N28.9 Disorder of kidney and ureter, unspecified
CPT/HCPCS: 36415; 74170; 82565; 84520; Q9967

== ENCOUNTER 2020-04-04 11:09 | Outpatient (CLI) | payer MEDICARE ==
[2020-04-04] MEDS ORDERED: GADOBUTROL 10 MMOL/10 ML VIAL ONE (11:26)
[2020-04-04] MEDS ORDERED: GADOBUTROL 10 MMOL/10 ML VIAL IVP ONE (13:18)
--- NOTE | 2020-04-04 13:43 | MRI Report ---
PROCEDURE: Abdomen W/WO INDICATIONS: L KIDNEY MASS CONTRAST: IV CONTRAST: Gadavist ml: 7 TECHNIQUE: Coronal ultra fast SE, axial 2D spoiled GE in- and [id number]; axial breath-hold T2 fast SE. Dynam ic axial ultra fast GE during the administration of contrast; post-contrast coronal ultra fast GE or 2D spoiled GE with fat saturation from the hepatic dome to the iliac crests. Optional diffusion weig hted imaging and ADC may be performed. COMPARISON: Correlation is made with prior CT examinations 03/30/2019 and 09/12/2019 FINDINGS: Image quality: Excellent. Lung bases: No basal pleural effusions. Heart size is normal. Solid organs: Liver and spleen are normal in size and enhancement. Gallbladder demonstrates no sign ificant MRI abnormality. Biliary system is non dilated. Pancreas is normal in morphology. No adren al nodules. At the inferior pole of the left kidney, there is a T2 hyperintense lobulated mass that measures up t o 2.9 cm. This mass demonstrates irregular enhancement, particularly along its inferior aspect. No ad ditional kidney masses are seen. The kidneys demonstrate normal size. There is no hydronephrosis. Nodes and vessels: No retroperitoneal or mesenteric adenopathy by size criteria. Aorta and inferior vena cava are normal in size. Bowel and peritoneum: Unenhanced bowel loops are normal in caliber. No free fluid. Bones and soft tissues: There is again seen a hernia of the left lower quadrant, which contains fat a nd nondilated loops of small bowel. Bone marrow is normal in overall signal. Mild levoconvex scoliot ic curvature is seen. IMPRESSION: 2.9 cm enhancing irregular cystic mass at the inferior pole of the left kidney, which is similar to t he prior CT and represents renal cell carcinoma until proven otherwise. On this study, no fatuma findings of metastatic disease are detected. There is again seen a hernia of the abdominal wall of the left lower quadrant, which contains fat and nondilated small bowel. Incidental note is made of: Levoconvex scoliotic curvature Reviewed by: Ladarius Mccann MD on 04/04/2020 12:41 PM [facility] Approved by: Ladarius Mccann MD on 04/04/2020 12:41 PM [facility] Station ID: [id number]
== END 2020-04-04 11:10 | disposition home or self-care (01) ==
LOC: DI 11:09
PROVIDERS: ATTEND Surgery
DX: N28.89 Other specified disorders of kidney and ureter (principal); K43.9 Ventral hernia without obstruction or gangrene
CPT/HCPCS: 74183; A9585

== ENCOUNTER 2020-04-21 14:48 | Outpatient (CLI) | payer MEDICARE ==
--- NOTE | 2020-04-22 14:34 | Mammography Report ---
BILATERAL DIGITAL SCREENING MAMMOGRAM 3D/2D: 04/21/2020 CLINICAL: Routine screening. Comparison is made to exams dated: 03/22/2019 mammogram, 07/01/2015 mammogram, and 06/17/2014 mammogram - [facility]. The tissue of both breasts is predominantly fatty. There are benign calcifications in both breasts. There also are benign vascular calcifications in th e right breast. No significant masses, calcifications, or other findings are seen in either breast. There has been no significant interval change. IMPRESSION: BENIGN There is no mammographic evidence of malignancy. A 1 year screening mammogram is recommended. This exam was interpreted at Station ID: [id number]. NOTE: For mammograms, a report in lay terms will be sent to the patient. Approximately 15% of breast malignancies will not be visualized mammographically. In the management of a palpable breast mass, a negative mammogram must not discourage biopsy of a clinically suspicious lesion. Electronically Signed By: Marisol penaloza/ethel:04/21/2020 17:00:24 ACR BI-RADS Category 2: Benign Finding(s) 3342F PARENCHYMAL PATTERN: (F) - The breast(s) demonstrate(s) diffuse fatty replacement. BI-RADS CATEGORY: (2) - 2 RECOMMENDATION: (ANNUAL) - Recommend routine annual screening mammography. [id number] 1 year screening LATERALITY: (B)
== END 2020-04-21 14:49 | disposition home or self-care (01) ==
LOC: DI 14:48
PROVIDERS: ATTEND Internal Medicine
DX: Z12.31 Encounter for screening mammogram for malignant neoplasm of breast (principal)

== ENCOUNTER 2020-05-15 13:55 | Outpatient (CLI) | payer MEDICARE ==
--- NOTE | 2020-05-15 15:41 | XRAY Report ---
PROCEDURE: Foot 3 View LT INDICATIONS: PAINFUL FOOT AND ANKLE LEFT TECHNIQUE: 3 views of the foot were acquired. COMPARISON: None FINDINGS: Bones: No fractures or dislocations. No suspicious bony lesions. Soft tissues: No tibiotalar joint effusion. Achilles tendon appears normal. IMPRESSION: Normal left foot Reviewed by: Abdulaziz Delgadillo on 05/15/2020 3:40 PM [facility] Approved by: Abdulaziz Delgadillo on 05/15/2020 3:40 PM [facility] Station ID: [id number]
--- NOTE | 2020-05-15 15:44 | XRAY Report ---
PROCEDURE: Ankle 3 View LT INDICATIONS: PAINFUL FOOT AND ANKLE LEFT TECHNIQUE: 3 views of the ankle were acquired. COMPARISON: None FINDINGS: Bones: No fractures or dislocations. Ankle mortise is normally aligned. No suspicious bony lesions . Soft tissues: No tibiotalar joint effusion. Achilles tendon appears normal. A calcification in the lateral soft tissues is likely a phlebolith. IMPRESSION: Normal left ankle. Reviewed by: Abdulaziz Delgadillo on 05/15/2020 3:43 PM [facility] Approved by: Abdulaziz Delgadillo on 05/15/2020 3:43 PM [facility] Station ID: [id number]
== END 2020-05-15 13:56 | disposition home or self-care (01) ==
LOC: DI 13:55
PROVIDERS: ATTEND Podiatrist
DX: M25.572 Pain in left ankle and joints of left foot (principal)

== ENCOUNTER 2020-11-12 13:13 | Outpatient (CLI) | payer MEDICARE ==
--- NOTE | 2020-11-12 14:30 | MRI Report ---
According to 4 PROCEDURE: Knee RT W/O INDICATIONS: RIGHT KNEE PAIN TECHNIQUE: Noncontrast sagittal PD fast spin echo and T2 fast spin echo with fat saturation, sagittal 3-D gradie nt sequence with fat saturation; coronal T1 spin echo and PD fast spin echo with fat saturation, and axial PD fast spin echo with fat saturation through the knee. COMPARISON: None. FINDINGS: Menisci: Medial meniscus: Oblique tear of the posterior horn of the medial meniscus, and the body with abnorma l signal extending to the undersurface as well as the periphery. Lateral meniscus: Intact. Cruciate ligaments: Anterior cruciate ligament: Intact. Posterior cruciate ligament: Intact. Medial structures: The medial collateral ligament demonstrates medial bowing, mild thickening and adjacent edema which c ould be reactive to medial meniscal pathology, versus low grade sprain. The semimembranosus tendon appears intact. Visualized portions of the pes anserinus tendons appear normal. No abnormal bursal fluid. Lateral structures: Lateral collateral ligament appears grossly intact. Biceps femoris tendon appears intact. Iliotibial band within normal limits. Popliteus tendon within normal limits. Anterior structures: Mild patellar tendinopathy, with prepatellar and superficial infrapatellar edema. The quadriceps tendon appears intact. Medial and lateral patellofemoral ligaments appear grossly intact. Patellar alignment is normal. Hoffa's fat pad unremarkable. Bones and cartilage: Bones: No bone marrow contusions or fractures. Medial compartment: Diffuse partial thickness loss of the femoral and tibial cartilage. Lateral compartment: No focal chondral defect. Patellofemoral compartment: Partial thickness loss of the cartilage overlying the medial patellar fac et. Femoral trochlear cartilage appears grossly intact. Joint space: No joint effusion. Trace fluid between the semimembranosus and medial gastrocnemius tendons without definite formed cyst . 8mm presumed loose body seen adjacent to the medial femoral condyle for example image [id number] IMPRESSION: Medial meniscal tear involving the body and posterior horn with partial extrusion. Adjacent MCL gasca es as above. Mild joint degeneration involving the medial and patellofemoral compartments. Loose body seen adjacent to the medial femoral condyle. Reviewed by: Ankur Garsia MD on 11/12/2020 2:28 PM PDT Approved by: Ankur Garsia MD on 11/12/2020 2:28 PM PDT Station ID: [id number]
== END 2020-11-12 13:14 | disposition home or self-care (01) ==
LOC: DI 13:13
PROVIDERS: ATTEND Internal Medicine
DX: S83.241A Other tear of medial meniscus, current injury, right knee, initial encounter (principal); M23.8X1 Other internal derangements of right knee; M17.11 Unilateral primary osteoarthritis, right knee; M23.41 Loose body in knee, right knee

== ENCOUNTER 2021-01-07 08:27 | Day surgery (SDC) | payer MEDICARE ==
[2021-01-07] MEDS ORDERED: LACTATED RINGERS 1,000 ML IV ONE ×2 (08:49→10:05)
--- NOTE | 2021-01-07 09:32 | ANESTHESIA ---
Pre-Anesthesia VS, & Labs - Diagnosis left nuclear sclerotic cataract - Procedure left cataract extraction with IOL Vital Signs: Temp Pulse Resp BP Pulse Ox 36.7 C 70 16 161/44 H 99 01/07/21 08:49 01/07/21 08:49 01/07/21 08:49 01/07/21 08:49 01/07/21 08:49 Height: 5 ft 2 in Weight (kg): 63.5 kg Body Mass Index: 25.6 BMI Classification: Overweight - NPO >8 hours - Is Patient ?: No Home Medications and Allergies Multivitamin [Multivitamins] 1 each PO DAILY 01/31/18 lisinopriL [Lisinopril] 10 mg PO DAILY 01/31/18 Aspirin 325 mg PO DAILY 12/11/18 C,E,Zinc,Copper 11/Smbym3n/Lut [Ocuvite Adult 50 Plus Softgel] 1 each PO DAILY 12/11/18 Estrogen,Con/M-Progest Acet [Prempro 0.45-1.5 mg Tablet] 1 each PO DAILY 12/11/18 Allergies/Adverse Reactions: Allergies Allergy/AdvReac Type Severity Reaction Status Date / Time amoxicillin Allergy Rash Verified 12/10/18 21:09 azithromycin Allergy Unknown Verified 12/10/18 21:09 Anes History & Medical History - Anesthetic History Anesthesia Complications: reports: No previous complications - Medical History Cardiovascular: reports: Hypertension Pulmonary: reports: None Gastrointestinal: reports: Hiatal hernia Urinary: reports: None Neuro: reports: None Musculoskeletal: reports: None Endocrine/Autoimmune: reports: None Blood Disorders: reports: None Smoking Status: Never smoker - Surgical History General: reports: Other Eyes Ears Nose Throat (EENT): reports: Cataracts Exam General: Alert Dental: WNL Mouth Openin Fingerbreadth Neck Mobility: Normal Mallampati classification: II Thyromental Distance: greater than 6 cm Respiratory: Lungs clear Cardiovascular: Regular rate Plan Anesthesia Type: MAC Consent for Procedure(s) Verified and Reviewed: Yes Code Status: Attempt Resuscitation ASA classification: 2-Mild systemic disease Is this case an emergency?: No
[2021-01-07] MEDS ORDERED: MIDAZOLAM 2 MG/2 ML VIAL ONE (09:44)
[2021-01-07] MEDS ORDERED: ONDANSETRON 4 MG/2 ML VIAL ONE (09:47)
[2021-01-07] MEDS ORDERED: BSS/LIDOCAINE/EPINEPHRINE 1 ML SYRINGE IO ONE (09:54)
[2021-01-07] MEDS ORDERED: TIMOLOL 0.5% OPHTH DROPS OPTH ONE (09:54)
[2021-01-07] MEDS ORDERED: EPINEPHrine 1 MG/ML AMP IR ONE (09:54)
[2021-01-07] MEDS ORDERED: BRIMONIDINE 0.2% OPHTH DROPS 5 ML OPTH ONE (09:54)
[2021-01-07] MEDS ORDERED: TRIAMCIN/MOXIFLOX OPHTHALMIC 0.6 ML VIAL IO ONE (09:54)
[2021-01-07] MEDS ORDERED: PROPARACAINE 0.5% OPHTH DROPS 15 ML EACHEYE ONE (09:55)
[2021-01-07] MEDS ORDERED: VANCOMYCIN OPHTHALMI 8MG/0.8ML 8 MG/0.8 ML SYRINGE IO ONE (09:55)
--- NOTE | 2021-01-07 10:07 | OPERATIVE REPORT ---
Operative Report - Other Other Information/Narrative: Date of Surgery: 01/07/21 Preop Dx: Visually significant cataract left eye. Cataract surgery was performed in the left eye on [id number]. Postop Dx: Same Procedure: Phacoemulsification with posterior chamber intraocular lens implant left eye Surgeon: Dr. Zach Gibson Anesthesia: Monitored anesthesia care Complications: None Operative Indications: This is a 80-year-old F with progressive vision loss in the left eye due to 3+ nuclear sclerotic, 2+ cortical, and trace posterior subcapsular cataract. Best corrected visual acuity was 20/60 with glare to hand motion vision in the left eye. Indications for surgery were: - Overall decrease in vision - Difficulty driving in low light or at night - Difficulty driving at night because of headlights from other vehicles - Difficulty with glare or bright lights in any situation The patient was consented at length concerning the risks and benefits of cataract surgery after which the patient expressed a desire to proceed with surgery. Operative Procedure: The patient was taken into OR#3 and placed under monitored anesthesia care. A surgical time-out was conducted confirming correct patient, correct procedure, and correct surgical site. The patient was given topical anesthesia and then prepped and draped in the usual sterile fashion. The eye was entered at the 6 and 3 oclock positions. Intracameral Shugarcaine was injected into the anterior chamber followed by a dispersive viscoelastic. A continuous-tear curvilinear capsulorhexis was performed. The nucleus was hydrodissected and phacoemulsified. The cortex was evacuated using automated infusion and aspiration. A cohesive viscoelastic was injected into the capsular bag and a 23.0 diopter intraocular lens was inserted into the bag. Infusion and aspiration were used to evacuate the viscoelastic materials from the eye. The wounds were hydrated and the eye inflated to physiologic pressure using balanced salt solution. Approximately 0.25ml of a mixture of triamcinolone and moxifloxacin was injected trans-sclerally into the vitreous in the inferotemporal quadrant using a 30 gauge cannula. An additional 0.55ml of a mixture of triamcinolone, moxifloxacin, and vancomycin was injected subconjunctivally in the superior quadrant for infection and inflammation prophylaxis. Wound integrity was checked with Weck-Velia sponges. The patient was taken from the operating room in good condition and given post-op instructions.
--- NOTE | 2021-01-07 10:11 | ANESTHESIA POST OP EVALUATION ---
Anesthesia Post Eval - Post Anesthesia Eval Vitals: Last Vital Signs Temp 36.7 C 01/07/21 08:49 Pulse 70 01/07/21 08:49 Resp 16 01/07/21 08:49 BP 161/44 H 01/07/21 08:49 Pulse Ox 99 01/07/21 08:49 CV Function Including HR & BP: Stable Pain Control: Satisfactory Nausea & Vomiting: Negative Mental Status: Baseline Respiratory Status: Airway Patent Hydration Status: Satisfactory Anesthesia Complications: None
[2021-01-07 10:50] VITALS: BP 124/36
== END 2021-01-07 08:28 | disposition home or self-care (01) ==
LOC: SDS 08:27
PROVIDERS: ATTEND Ophthalmology
DX: H25.12 Age-related nuclear cataract, left eye (principal); I10 Essential (primary) hypertension; Z96.1 Presence of intraocular lens; H35.30 Unspecified macular degeneration; H26.491 Other secondary cataract, right eye; H01.009 Unspecified blepharitis unspecified eye, unspecified eyelid; Z79.82 Long term (current) use of aspirin; Z79.899 Other long term (current) drug therapy
CPT/HCPCS: 66984; A9270; J3490; J7120

== ENCOUNTER 2021-04-07 12:11 | Outpatient (CLI) | payer MEDICARE ==
[2021-04-07] MEDS ORDERED: iohexoL-300 100 ML VIAL ONE ×2 (13:29→13:30)
[2021-04-07 13:56] LABS: CREATININE 1.2 mg/dL (0.4-1.0)
[2021-04-07] MEDS ORDERED: iohexoL-300 100 ML VIAL IVP ONE (16:21)
--- NOTE | 2021-04-07 17:37 | CT Report ---
PROCEDURE: ABDOMEN/PELVIS W/WO INDICATIONS: ABN LEFT KIDNEY IMAGAIN, LEFT KIDNEY MASS, HERNIA CONTRAST: IV CONTRAST: Isovue 300 ml: 140 PO CONTRAST: *NO PO CONTRAST TECHNIQUE: Noncontrast 5 mm thick sections acquired from the diaphragms to the symphysis. 5 mm coronal and sagi ttal reformats were then performed. After the administration of oral and intravenous contrast, 5 mm thick sections acquired from the diaphragms to the symphysis. 5 mm thick coronal and sagittal reform ats were acquired. For radiation dose reduction, the following was used: automated exposure control , adjustment of mA and/or kV according to patient size. COMPARISON: 09/12/2019 FINDINGS: Image quality: Excellent. Lung bases: Lung bases are clear. Heart size is normal. Small hiatal hernia. Urinary system: Both kidneys are normal in size, without hydronephrosis or nephrolithiasis on pre-co ntrast images. No perinephric fat stranding. There is normal bilateral renal enhancement. Renal ca lyces appear normal in morphology when filled with contrast. Opacified portions of both ureters demo nstrate normal caliber. Bladder wall thickness is normal for degree of distention. No calcified jena dder stones. Redemonstration of partially exophytic 3.0 cm inferior left renal mass which is partial ly solid and partially cystic in appearance. It demonstrates avid heterogeneous arterial enhancement with relative washout on the delayed phase. Other solid organs: Liver and spleen are normal in size and enhancement. Gallbladder is unremarkable . Biliary system is non dilated. Pancreas enhances normally. No adrenal nodules. Peritoneum and bowel: Bowel loops demonstrate normal wall thickness and caliber. No free fluid or a ir. Nodes and vessels: No retroperitoneal or mesenteric adenopathy by size criteria. Aorta and inferior vena cava are normal in size. Scattered apical scarring calcifications. Abdominal wall: Redemonstration of large left anterior abdominal wall ventral hernia containing a jadiel g segment of proximal small bowel as well as the distal transverse colon, descending colon and proxim al sigmoid colon. No evidence for strangulation or obstruction proximally. There is stable appearance of previous surgical changes from ventral hernia mesh repair. Pelvis: No pathologic free pelvic fluid. No inguinal hernias or adenopathy. Well-circumscribed cys tic lesion involving the right ovary/adnexa likely representing a ovarian cyst. Bones: No suspicious bony lesions. No acute vertebral body compression fractures. Multilevel spond ylosis. IMPRESSION: 1. Stable size and appearance of 3.0 cm inferior left renal mass compatible with renal cell carcinoma . No evidence for regional or metastatic disease. 2. Redemonstration of large left ventral abdominal wall hernia containing long segment of small bowel as well as a long segment of distal colon. No evidence for strangulation or proximal obstruction. 3. A 3.5 cm cystic structure involving the right ovary/adnexa. Findings are likely related to an ovar brian cyst. However, given presumed postmenopausal state, recommend further evaluation with pelvic ultr asound. Reviewed by: Augustin Velez MD on 04/07/2021 5:36 PM PST Approved by: Augustin Velez MD on 04/07/2021 5:36 PM PST Station ID: [id number]
== END 2021-04-07 12:12 | disposition home or self-care (01) ==
LOC: LAB 12:11
PROVIDERS: ATTEND Surgery
DX: K43.9 Ventral hernia without obstruction or gangrene (principal); C64.2 Malignant neoplasm of left kidney, except renal pelvis; R93.89 Abnormal findings on diagnostic imaging of other specified body structures
CPT/HCPCS: 36415; 74178; 82565; Q9967

== ENCOUNTER 2021-05-01 14:26 | Outpatient (CLI) | payer MEDICARE ==
--- NOTE | 2021-05-01 18:30 | Ultrasound Report ---
PROCEDURE: Pelvic w/Transvaginal, ultrasound INDICATIONS: CYSTIC RIGHT OVARY TECHNIQUE: Real-time scanning was performed of the pelvic organs, with image documentation. Additional endovagi nal scanning was necessary due to incomplete visualization of the adnexal and endometrial structures by transabdominal scanning. COMPARISON: CT abdomen and pelvis 04/07/2021 FINDINGS: No pathologic free abdominal or pelvic fluid. Uterus: Uterus is normal in size at 6.2 x 3.2 x 4.7 cm cm. Echogenic foci within the myometrium pro bably reflect small myometrial calcifications. The endometrium measures 2 mm in combined thickness. Ovaries: Neither ovary visualized. There is a 2.9 x 3.2 x 1.4 cm cystic tubular structure correspond ing with the prior CT finding IMPRESSION: 1. Tubular cystic structure in the right adnexa consistent with right hydrosalpinx. 2. Neither ovary visualized. No adnexal mass. Reviewed by: Rommel Arora MD on 05/01/2021 5:29 PM [facility] Approved by: Rommel Arora MD on 05/01/2021 5:29 PM [facility] Station ID: [id number]
== END 2021-05-01 14:27 | disposition home or self-care (01) ==
LOC: DI 14:26
PROVIDERS: ATTEND Surgery
DX: N83.201 Unspecified ovarian cyst, right side (principal); R93.89 Abnormal findings on diagnostic imaging of other specified body structures

== ENCOUNTER 2021-08-09 10:52 | Outpatient (CLI) | payer MEDICARE ==
--- NOTE | 2021-08-09 18:21 | MRI Report ---
PROCEDURE: Lumbar Spine W/O INDICATIONS: SCIATICA TECHNIQUE: Noncontrast sagittal T1 spin echo and T2 fast echo, sagittal STIR, axial T1 and T2 fast spin echo thr ough the lumbar spine. In cases with scoliosis, additional coronal T2 fast spin echo may be performe d. COMPARISON: Correlation is made with prior abdomen and pelvis CT, 04/07/2021 FINDINGS: Image quality: Excellent. Alignment and Curvature: Moderate grade 1 anterolisthesis is seen at L4-L5. Mild grade 1 anterolisthe sis is seen at L5-S1. No definite associated pars defects are seen. Mild levoconvex scoliotic curvatu re is seen. Bone Marrow: Marrow is of normal overall signal. No acute vertebral body compression fractures. Spinal Cord: Conus medullaris terminates at the L1 level. Visualized cord demonstrates normal signa l and size. Paraspinous Soft Tissues: No paravertebral masses. There is an irregular cystic and solid mass at t he inferior pole of the right kidney, measuring 2.8 cm, as on series 701 image 23. A pelvic cyst is p artially seen, as on series 701 image 1, measuring 2.8 cm. T12-L1: No significant abnormality is seen. L1-L2: Level within normal limits. L2-L3: The disc height is well-preserved. There is loss of disc signal seen. Mild to moderate disc bulge is seen, which is eccentric to the left. At least moderate facet hypertrophy is seen. Moderate to prominent facet hypertrophy is seen. Associated hypertrophy of the ligamentum flavum can be seen. There is mild to moderate left-sided and moderate right-sided neuroforaminal narrowing. Moderate c entral canal narrowing is seen. L3-L4: Moderate to severe loss of disc height and disc signal can be seen on the right side. Moder ate disc bulge is seen at this level. At least moderate facet hypertrophy is seen at this level. The re is moderate left-sided and at least moderate right-sided neuroforaminal narrowing. Moderate centr al canal narrowing is seen. L4-L5: Moderate disc bulge is seen at this level. At least moderate central canal narrowing is seen , with a central disc extrusion, with superior migration of the disc material. Prominent facet hypert rophy is seen. Fluid is seen within the facet joints themselves. Associated hypertrophy of the ligam entum flavum can be seen. Moderate to severe bilateral neural foraminal narrowing can be seen, with associated compression upon the exiting nerve roots. There is severe central canal narrowing. L5-S1: Moderate loss of disc height and signal are seen. Mild to moderate disc bulge is seen. At le ast moderate facet hypertrophy is seen. There is at least moderate bilateral neuroforaminal narrowing seen, left worse than right. Compression is seen upon the exiting nerve roots. Moderate central ca nal narrowing is seen. 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 IMPRESSION: Multiple levels of lumbar spine degenerative change are seen, which are overall worst at the L4-L5 level. Left renal mass again seen, which remain suspicious for primary renal cell carcinoma. A pelvic cyst is again seen, which was previously seen by CT. Reviewed by: Ladarius Mccann MD on 08/09/2021 5:20 PM AKDT Approved by: Ladarius Mccann MD on 08/09/2021 5:20 PM AKLADAN Station ID: [id number]
== END 2021-08-09 10:53 | disposition home or self-care (01) ==
LOC: DI 10:52
PROVIDERS: ATTEND Internal Medicine
DX: M54.30 Sciatica, unspecified side (principal); N28.89 Other specified disorders of kidney and ureter; N94.89 Other specified conditions associated with female genital organs and menstrual cycle; M43.16 Spondylolisthesis, lumbar region; M43.17 Spondylolisthesis, lumbosacral region; M47.816 Spondylosis without myelopathy or radiculopathy, lumbar region; M51.36 Other intervertebral disc degeneration, lumbar region; M48.061 Spinal stenosis, lumbar region without neurogenic claudication; M47.817 Spondylosis without myelopathy or radiculopathy, lumbosacral region; M51.37 Other intervertebral disc degeneration, lumbosacral region; M48.07 Spinal stenosis, lumbosacral region; G96.191 Perineural cyst

== ENCOUNTER 2022-09-07 13:47 | Outpatient (CLI) | payer MEDICARE ==
[2022-09-07 14:11] LABS: CREATININE 1.1 mg/dL (0.4-1.0)
[2022-09-07] MEDS ORDERED: iohexoL-300 100 ML VIAL ONE ×2 (14:18→14:19)
[2022-09-07] MEDS ORDERED: iohexoL-300 100 ML VIAL IVP ONE (14:33)
--- NOTE | 2022-09-07 17:23 | CT Report ---
PROCEDURE: ABDOMEN W/WO INDICATIONS: RENAL LESION CONTRAST: 140mL Omni 300 TECHNIQUE: 4 phase scanning was performed. After the administration of intravenous contrast, 5 mm thick section s acquired from the diaphragm to the symphysis. 5 mm coronal and sagittal reformats were acquired. For radiation dose reduction, the following was used: automated exposure control, adjustment of mA a nd/or kV according to patient size. COMPARISON: 04/07/2021 FINDINGS: Image quality: Good Lower chest: Basal scarring/atelectasis. Solid organs: The liver appears unremarkable bladder is unremarkable. No pathologic dilation of the b iliary tree or pancreatic duct. No splenomegaly. No adrenal nodules. No hydronephrosis. Subcentimeter lesions are too small to characterize, also seen previously. Left lower pole enhancing renal mass measures 2.8 x 2.7 cm on one axial slice (12/15), previously 2.9 x 2.5 cm. Subjective appea wilfredo is unchanged. This is in close proximity to the anterior pararenal fascia. The left renal vein appears patent. Vessels and lymph nodes: No abdominal aortic aneurysm. No pathologic adenopathy by size criteria. Shira n portal vein appears patent. Bowel and peritoneum: No evidence of small bowel obstruction. No pathologic ascites. Similar appearan ce of large complex ventral hernia containing bowel, mesentery, and omentum. Body wall: Hernia as above. Evidence of prior surgical material. Pelvis: Partially significant reproductive organs are not well evaluated on CT, stable cystic lesion at the right adnexa. Partially seen rectosigmoid anastomotic suture lines. Bones: Lumbosacral fusion hardware. Degenerative changes. 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 Other incidental/ stable findings above. Large ventral hernia again seen. Reviewed by: Venkatesh Patel MD on 09/07/2022 5:22 PM PDT Approved by: Venkatesh Patel MD on 09/07/2022 5:22 PM PDT Station ID: [id number]
== END 2022-09-07 13:48 | disposition home or self-care (01) ==
LOC: LAB 13:47
PROVIDERS: ATTEND Urology
DX: N28.9 Disorder of kidney and ureter, unspecified (principal); K43.9 Ventral hernia without obstruction or gangrene
CPT/HCPCS: 36415; 74170; 82565; Q9967

== ENCOUNTER 2023-05-12 13:27 | Outpatient (CLI) | payer MEDICARE ==
--- NOTE | 2023-05-15 08:34 | Mammography Report ---
BILATERAL DIGITAL SCREENING MAMMOGRAM 3D/2D: 05/12/2023 CLINICAL: Routine screening. Comparison is made to exams dated: 11/01/2021 mammogram, 04/21/2020 mammogram, 03/22/2019 mammogram, and 07/01/2015 mammogram - [facility]. Both breasts are almost entirely fatty (category a/<25% glandular tissue). There are benign calcifications in both breasts. There also are benign vascular calcifications in junie th breasts. No significant masses, calcifications, or other findings are seen in either breast. There has been no significant interval change. IMPRESSION: BENIGN There is no mammographic evidence of malignancy. A 1 year screening mammogram is recommended. Based on the Tyrer Cuzick model (a risk assessment model) the patient's lifetime risk is 1.2% and her 10 year risk is 0.0%. According to the ACR, ACS, and NCCN guidelines, an annual breast MRI exam addi g with mammogram is recommended if the patient's lifetime risk is 20% or greater. This exam was interpreted at Station ID: [id number]. NOTE: For mammograms, a report in lay terms will be sent to the patient. Approximately 15% of breast malignancies will not be visualized mammographically. In the management of a palpable breast mass, a negative mammogram must not discourage biopsy of a clinically suspicious lesion. Electronically Signed By: Jann moise/ethel:05/12/2023 20:52:50 letter sent: No_Letter ACR BI-RADS Category 2: Benign Finding(s) 3342F PARENCHYMAL PATTERN: (F) - The breast(s) demonstrate(s) diffuse fatty replacement. BI-RADS CATEGORY: (2) - 2 Mammogram [id number] 1 year screening LATERALITY: (B)
== END 2023-05-12 13:28 | disposition home or self-care (01) ==
LOC: DI 13:27
DX: Z12.31 Encounter for screening mammogram for malignant neoplasm of breast (principal); R92.1 Mammographic calcification found on diagnostic imaging of breast

== ENCOUNTER 2023-08-20 21:46 | Outpatient (CLI) | payer MEDICARE | END 2023-08-20 23:59 | disposition critical access hospital (66) | LOC: EMS 21:46 | DX: K59.00 Constipation, unspecified (principal); R14.0 Abdominal distension (gaseous); R10.32 Left lower quadrant pain; R10.31 Right lower quadrant pain; R10.814 Left lower quadrant abdominal tenderness; R19.34 Left lower quadrant abdominal rigidity; R19.33 Right lower quadrant abdominal rigidity | CPT/HCPCS: A0425; A0427 ==

== ENCOUNTER 2023-08-20 22:08 | Emergency (ER) | payer MEDICARE ==
[2023-08-20 22:20] LABS: BASOPHILS # (AUTO) 0.1 10^3/uL (0.0-0.1); BASOPHILS % (AUTO) 0.7 %; EOSINOPHILS # (AUTO) 0.3 10^3/uL (0.0-0.7); EOSINOPHILS % (AUTO) 2.2 %; HCT - HEMATOCRIT 41.5 % (37.0-47.0); HGB - HEMOGLOBIN 13.3 g/dL (12.0-16.0); LYMPHOCYTES # (AUTO) 2.7 10^3/uL (1.5-3.5); LYMPHOCYTES % (AUTO) 20.8 %; MEAN CORPUSCULAR HEMOGLOBIN 30.2 pg (27.0-31.0); MEAN CORPUSCULAR VOLUME 94.3 fL (81.0-99.0); MEAN PLATELET VOLUME 10.8 fL (7.9-10.8); MONOCYTES # (AUTO) 0.6 10^3/uL (0.0-1.0); MONOCYTES % (AUTO) 4.9 %; NEUTROPHILS # (AUTO) 9.2 10^3/uL (1.5-6.6); NEUTROPHILS % (AUTO) 70.9 %; PLT - PLATELET COUNT 226 10^3/uL (130-450); RED CELL DISTRIBUTION WIDTH 13.4 % (12.0-15.0)
[2023-08-20 22:31] LABS: ALBUMIN/GLOBULIN RATIO 1.6 (1.0-2.2); BILIRUBIN,TOTAL 0.8 mg/dL (0.2-1.0); CALCIUM 10.1 mg/dL (8.5-10.3); CREATININE 1.2 mg/dL (0.6-1.3); POTASSIUM 3.5 mmol/L (3.5-4.5); TOTAL PROTEIN 6.5 g/dL (6.4-8.9)
--- NOTE | 2023-08-20 22:39 | ED Physician Documentation ---
PD HPI ABD PAIN - Stated complaint Stated Complaint: ABD PX - Chief complaint Chief Complaint: Abd Pain - History obtained from History obtained from: Patient - Additional information Additional information: HPI from patient. GIOVANY. Patient complains of sudden onset of abdominal pain earlier tonight shortly after eating dinner. She denies nausea, vomiting. The pain is across lower abdomen but most pronounced periumbilical and left lower quadrant, particularly the in the area of a chronic and very large ventral hernia. She says the symptoms have some similarity to previous episodes of diverticulitis. The pain is exacerbated with abdominal palpation. She had improvement with 4 mg IV morphine given en route by EMS. Past abdominal surgical history includes hemicolectomy in 2008 (undertaken due to complications of diverticulitis), as well as ventral hernia repair in approximately 2009 with mesh; patient says the hernia reoccurred very shortly after the hernia surgery and has gradually worsened since then. Review of Systems Constitutional: denies: Fever, Chills, Sweats Cardiac: reports: Reviewed and negative Respiratory: reports: Reviewed and negative GI: reports: Abdominal Pain. denies: Nausea, Vomiting, Constipation, Diarrhea, Hematemesis, Bloody / black stool PD PAST MEDICAL HISTORY - Past Medical History Past Medical History: Yes Cardiovascular: Hypertension Respiratory: None Neuro: None Endocrine/Autoimmune: None GI: Hiatal hernia, Diverticulitis : None Psych: None Musculoskeletal: None - Past Surgical History Past Surgical History: Yes General: Other HEENT: Cataracts - Present Medications Home Medications: Ambulatory Orders Medication Instructions Recorded Confirmed Multivitamin [Multivitamins] 1 each PO DAILY 01/31/18 08/20/23 lisinopriL [Lisinopril] 10 mg PO DAILY 01/31/18 08/20/23 Aspirin 0.5 tab PO DAILY 12/11/18 08/20/23 C,E,Zinc,Copper 11/Yovyw2k/Lut 1 each PO DAILY 12/11/18 08/20/23 [Ocuvite Adult 50 Plus Softgel] Estrogen,Con/M-Progest Acet 1 each PO DAILY 12/11/18 08/20/23 [Prempro 0.45-1.5 mg Tablet] - Allergies Allergies/Adverse Reactions: Allergies Allergy/AdvReac Type Severity Reaction Status Date / Time amoxicillin Allergy Rash Verified 12/10/18 21:09 azithromycin Allergy Unknown Verified 12/10/18 21:09 - Social History Does the pt smoke?: No Smoking Status: Never smoker Does the pt drink ETOH?: No Does the pt have substance abuse?: No - Immunizations Immunizations are current?: Yes - POLST Patient has POLST: No PD ED PE NORMAL - Vitals Vital signs reviewed: Yes - General General: Alert and oriented X 3, No acute distress, Well developed/nourished - Cardiac Cardiac: RRR, No murmur - Respiratory Respiratory: No respiratory distress, Clear bilaterally - Abdomen Abdomen: Soft, Non distended PD ED PE EXPANDED - Abdomen Abdomen: Tender to palpation (moderate TTP left of umbilicus over visible and palpable large hernia), Guarding. No: Rebound Results - Vitals Vitals: Oxygen O2 Source Room air - Labs Labs: Laboratory Tests 08/20/23 08/20/23 08/20/23 22:10 22:10 23:21 WBC 13.0 H RBC 4.40 Hgb 13.3 Hct 41.5 MCV 94.3 MCH 30.2 MCHC 32.0 RDW 13.4 Plt Count 226 MPV 10.8 Neut # (Auto) 9.2 H Lymph # (Auto) 2.7 [place] # (Auto) 0.6 Eos # (Auto) 0.3 Baso # (Auto) 0.1 Absolute Nucleated RBC 0.00 Nucleated RBC % 0.0 Sodium 139 Potassium 3.5 Chloride 103 Carbon Dioxide 22 Anion Gap 14.0 H BUN 21 H Creatinine 1.2 Estimated GFR (MDRD) 43 L Glucose 120 H Lactic Acid 2.8 H Calcium 10.1 Total Bilirubin 0.8 AST 12 ALT 5 L Alkaline Phosphatase 54 Total Protein 6.5 Albumin 4.0 Globulin 2.5 Albumin/Globulin Ratio 1.6 Lipase 27 Urine Color Urine Clarity Urine pH Ur Specific [place] Urine Protein Urine Glucose (UA) Urine Ketones Urine Occult Blood Urine Nitrite Urine Bilirubin Urine Urobilinogen Ur Leukocyte Esterase Ur Microscopic Review Urine Culture Comments 08/21/23 03:28 WBC RBC Hgb Hct MCV MCH MCHC RDW Plt Count MPV Neut # (Auto) Lymph # (Auto) [place] # (Auto) Eos # (Auto) Baso # (Auto) Absolute Nucleated RBC Nucleated RBC % Sodium Potassium Chloride Carbon Dioxide Anion Gap BUN Creatinine Estimated GFR (MDRD) Glucose Lactic Acid Calcium Total Bilirubin AST ALT Alkaline Phosphatase Total Protein Albumin Globulin Albumin/Globulin Ratio Lipase Urine Color YELLOW Urine Clarity CLEAR Urine pH 7.0 Ur Specific [place] <=1.005 Urine Protein NEGATIVE Urine Glucose (UA) NEGATIVE Urine Ketones TRACE Urine Occult Blood NEGATIVE Urine Nitrite NEGATIVE Urine Bilirubin NEGATIVE Urine Urobilinogen 0.2 (NORMAL) Ur Leukocyte Esterase NEGATIVE Ur Microscopic Review NOT INDICATED Urine Culture Comments NOT INDICATED - Rads (name of study) CT A/P with IV/PO contrast Relevant Findings:: Prelim report reviewed, See rad report PD Medical Decision Making - ED course Complexity details: reviewed results, re-evaluated patient, considered differ ential, d/w patient ED course: Mild leukocytosis (WBC 13), but otherwise no notable findings on CBC, ER abdominal panel. BUN 21, creatinine 1.2, GFR 43. Normal LFTs, normal lipase. As incarcerated/strangulated hernia is on the differential diagnosis, a lactate level is performed and the result is 2.8. Patient received 4 mg IV morphine en route with significant improvement in her pain, but she had recurrence of the abdominal pain during ED stay requiring 2 more doses 4 mg IV morphine; she did have adequate, although transient, relief of her abdominal pain with the morphine. He was given 4 mg IV Zofran en route, and required another dose during ED stay for recurrence of nausea. CT abdomen pelvis was undertaken with IV and oral contrast; patient tells me she only drank a small amount of contrast. Radiologist interpretation of the study is "no acute abnormality identified in the abdomen or pelvis. Stable large ventral hernia containing loops of small and large bowel without signs of bowel obstruction. A small amount of nonspecific free fluid is seen within the hernia sac and pelvis. Colonic diverticulosis. Stable appearance of the solid exophytic mass in the inferior pole left kidney measuring up to 3 cm that is compatible with renal cell carcinoma." I discussed the results of all of her tests including the CT scan with the patient. She says the kidney mass is not new, and she says it has been present for approximately 5 years; given stable appearance on CT, this is not only an incidental finding but unlikely to represent carcinoma. This can be reevaluated in the outpatient setting Despite no evidence of acute abnormality on this CT, there is significant tenderness to palpation of her abdomen over the hernia with areas that are firm on palpation. I attempted to reduce the firm/tender area but was unable to do so (not expecting to reduce the entirety of this extensive hernia). Thus, incarcerated and strangulated hernia remains a concern. I contacted Dr. Telles (patient's local surgeon who happens to also be central communications specialist for [facility] surgery) for consideration of admission for symptom control and observation; he says that if patient needs surgical intervention, the procedure would be beyond the capacity of [facility] (such as component separation) and thus patient should be transferred to higher level of care. I relayed this to patient. She would prefer transfer to [facility] if appropriate. I then spoke with Dr. Fraser (on-call surgeon at [facility]), who says such a procedure would also be beyond the scope of [facility] surgical services and recommends transfer to . or hospital with similar depth of available surgical services. Patient became understandably increasingly anxious late in ED stay and thus given 1mg IV lorazepam. Note that seven hours into ED stay, although her pain was recurrent it was not worsening nor out of control of occasional doses of IV morphine as noted, above. I reexamined patient a number of times during my shift including at end of my shift at 7 AM. She is resting comfortably and in NAD but still has significant TTP over the abdominal hernia. She says she has not had any stool output nor passed any gas since yesterday. I heard from [facility] transfer center coordinator earlier and was informed that their surgical services will be paged sometime after 7 AM this morning unless patient needs emergent surgical intervention. Care of patient is turned over to oncoming ED physician (Dr. Mendiola) Departure - Departure Disposition: 01 Home, Self Care Clinical Impression: Abdominal pain Condition: Stable Instructions: Abdominal Pain Comments: I recommend following up with [facility] surgical team due to the complexity of your hernia. At this time since you are pain-free and have been for several hours I believe you are safe to be discharged home. Please return if your pain recurs or worsens. Forms: PCP List Discharge Date/Time: 08/21/23 11:00
[2023-08-20] MEDS ORDERED: DIATRIZOATE MEGLU/DIATRIZO SOD 30 ML BOTTLE PO ONE (23:43)
[2023-08-20] MEDS ORDERED: iohexoL-300 100 ML VIAL ONE (23:44)
[2023-08-21] MEDS: MORPHINE 2 MG/ML CARPUJECT IVP STA ×2 (00:46→03:31)
[2023-08-21] MEDS: iohexoL-300 100 ML VIAL IVP ONE (01:31)
--- NOTE | 2023-08-21 01:58 | CT Report ---
PROCEDURE: Abdomen/Pelvis W INDICATIONS: abd. pain CONTRAST: 100 ML OMNI 300 TECHNIQUE: After the administration of intravenous contrast, a CT scan of the abdomen and pelvis was performed. Images were recorded and evaluated at appropriate window settings. Reformats: coronal and sagittal. F or radiation dose reduction, the following was used: automated exposure control, adjustment of mA and /or kV according to patient size. COMPARISON: CT abdomen 09/07/2022 . FINDINGS: Image quality: Diagnostic. Lower chest: Lungs are clear. Mitral annular calcifications are noted. Liver: No solid mass. Gallbladder: No radiopaque stones or wall thickening. Biliary tree: No intrahepatic or extrahepatic dilation, accounting for age. Spleen: No splenomegaly. Pancreas: No pancreatic ductal dilation. Adrenals: No adrenal nodule. Kidneys and ureters: Exophytic solid mass again seen at the inferior pole of the left kidney measurin g up to 3.0 cm, not significantly changed when compared to the CT from 09/07/2022. Hyperdense material at the renal calyces may represent early extravasation of intravenous contrast material versus less likely nonobstructing renal calculi. No hydronephrosis. Stomach, bowel and peritoneum: No gastric or small bowel dilation. No abnormal wall thickening. Small amount of free fluid is seen in the pelvis and within the abdominal hernia. Multiple diverticula are seen in the colon without signs of acute diverticulitis. Small bowel and large bowel loops are seen extending into the large ventral hernia without signs of obstruction. Lymph nodes: No central or retroperitoneal adenopathy. Vessels: No infrarenal aortic aneurysm. Patent portal vein. PELVIS Reproductive organs: Unremarkable. Bladder: No abnormal wall thickening, accounting for underdistention. Pelvic lymph nodes: No pelvic adenopathy by size criteria. Bones: No aggressive osseous abnormality. Postsurgical changes are seen in the lumbar spine. Other: Large ventral hernia again seen containing loops of small and large bowel as well as a small a mount of ascitic fluid. Herniorrhaphy clips are seen near the hernia. No signs of bowel obstruction. IMPRESSION: 1.No acute abnormality identified in the abdomen or pelvis. 2.Stable large ventral hernia containing loops of small and large bowel without signs of bowel obstru ction. A small amount of nonspecific free fluid is seen within the hernia sac and pelvis. 3.Colonic diverticulosis. 4.Stable appearance of the solid exophytic mass of the inferior pole of the left kidney measuring up to 3 cm that is compatible with renal cell carcinoma. Reviewed by: Michael Greene MD on 08/21/2023 1:56 AM PDT Approved by: Michael Greene MD on 08/21/2023 1:56 AM PDT Station ID: [id number]
[2023-08-21 04:02] LABS: BILIRUBIN,URINE NEGATIVE (NEGATIVE); GLUCOSE, URINE (UA) NEGATIVE (NEGATIVE); KETONES,URINE (UA) TRACE mg/dL (NEGATIVE); LEUKOCYTE ESTERASE, URINE NEGATIVE (NEGATIVE); NITRITE,URINE NEGATIVE (NEGATIVE); OCCULT BLOOD,URINE NEGATIVE (NEGATIVE); PROTEIN,URINE NEGATIVE (NEGATIVE); UROBILINOGEN,URINE 0.2 (NORMAL) E.U./dL (NORMAL)
[2023-08-21 04:06] LABS: CLARITY,URINE CLEAR (CLEAR)
[2023-08-21] MEDS: ONDANSETRON 4 MG/2 ML VIAL IVP STA ×2 (04:09→06:16)
[2023-08-21] MEDS: SODIUM CHLORIDE 0.9% 1,000 ML IV STA (04:10)
[2023-08-21] MEDS ORDERED: LORazepam 2 MG/ML VIAL ONE (06:13)
[2023-08-21] MEDS: LORazepam 2 MG/ML VIAL IVP STA (06:17)
[2023-08-21 10:15] VITALS: BP 128/50; O2SAT 100
--- NOTE | 2023-08-21 10:38 | ED Physician Documentation ---
ED Addendum - Addendum Addendum: 08/21/23 10:36 Patient reassessed. Pain free for multiple hours. Slept comfortably for several hours. No pain medications for several hours. Patient states she feels well and does not want to be transferred if it is not necessary. Abdomen is soft, there is no reproducible tenderness to light or deep palpation. At this point I believe it is reasonable to send the patient home. I had a lengthy discussion with patient's daughter Jann Wright, who is in agreement with plan. I did rec ommend that patient follow-up with [facility] surgical team following this ED visit due to the complexity of her hernia.
== END 2023-08-21 11:00 | disposition home or self-care (01) ==
LOC: EDUNIT# → ED 22:08
DX: R10.33 Periumbilical pain (principal); R10.32 Left lower quadrant pain; D72.829 Elevated white blood cell count, unspecified; I10 Essential (primary) hypertension; Z79.899 Other long term (current) drug therapy; Z79.82 Long term (current) use of aspirin
CPT/HCPCS: 36415; 74177; 80053; 81003; 83605; 83690; 85025; 96374; 96375; 96376; 99284; 99285; J2060; Q9963; Q9967; 81001; 87086

== ENCOUNTER 2023-11-22 13:21 | Outpatient (CLI) | payer MEDICARE ==
[2023-11-22] MEDS ORDERED: iohexoL-300 150 ML BOTTLE ONE (13:32)
[2023-11-22 13:56] LABS: CREATININE 1.2 mg/dL (0.6-1.3)
[2023-11-22] MEDS: iohexoL-300 150 ML BOTTLE IVP ONE (14:34)
--- NOTE | 2023-11-23 11:55 | CT Report ---
PROCEDURE: Abdomen W/WO INDICATIONS: RENAL LESION CONTRAST: Omni 300 140ml TECHNIQUE: After the administration of intravenous contrast, 5 mm thick sections acquired from the diaphragm to the symphysis. 5 mm coronal and sagittal reformats were acquired. For radiation dose reduction, the following was used: automated exposure control, adjustment of mA and/or kV according to patient siz e. COMPARISON: 09/07/2022, 09/12/2019 FINDINGS: Image quality: Diagnostic Lower chest: Small right Bochdalek's fat-containing hernia. Lung bases otherwise unremarkable. Annula r calcifications. Coronary calcifications. Liver: Unremarkable Gallbladder and biliary system: Possible tiny cholelithiasis. No pathologic biliary dilation Pancreas: No ductal dilation. Spleen: Nonenlarged Adrenals: No discrete nodules. Mild bilateral thickening Kidneys: No obstructing calcified stone. No hydronephrosis mostly solid mass in the left lower pole a gain seen, now measuring 3.1 x 2.7 cm, previously 2.8 x 2.7 cm August 2022, 2.8 x 2.4 cm in 2019. The l eft renal vein is patent. Vessels and lymph nodes: The main portal vein appears patent. No abdominal aortic aneurysm or patholo gic lymph nodes by size criteria. Bowel and peritoneum: No evidence of small bowel obstruction. No pathologic ascites. Body wall: Postsurgical changes. Large ventral hernia partially seen containing bowel, omentum, and m esenteric vessels. Mild congestion and edema is present, without obstruction. Bones: Lumbosacral fusion hardware. IMPRESSION: Left lower pole exophytic mass probably represents a slow-growing renal cell carcinoma. Measurements today are slightly increased compared to multiple prior CTs. Large ventral hernia again seen. Other findings above. Reviewed by: Venkatesh Patel MD on 11/23/2023 11:54 AM PDT Approved by: Venkatesh Patel MD on 11/23/2023 11:54 AM PDT Station ID: [id number]
== END 2023-11-22 13:22 | disposition home or self-care (01) ==
LOC: DI 13:21
PROVIDERS: ATTEND Urology
DX: N28.89 Other specified disorders of kidney and ureter (principal); K43.9 Ventral hernia without obstruction or gangrene
CPT/HCPCS: 36415; 82565